=== PATIENT | female | born 1935 | race Caucasian/White ===

== ENCOUNTER 2017-04-16 09:51 | Outpatient (CLI) | payer MEDICARE ==
--- NOTE | 2017-04-16 10:41 | CT ---
CT BRAIN WITHOUT CONTRAST: History: Unsteady gait. FINDINGS: There are changes of cortical atrophy and chronic small vessel ischemic disease. The ventricular size is slightly more prominent than expected for the degree of atrophy. No evidence of acute infarct, he morrhage, midline shift, or abnormal extraaxial fluid collections are seen. The bony calvarium is int act. The visualized paranasal sinuses and mastoid air cells are well aerated. IMPRESSION: 1. No CT evidence of acute intracranial process. 2. 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 POS: [facility]
--- NOTE | 2017-04-16 15:49 | NM ---
NUCLEAR MEDICINE BRAIN IMAGING: Date: 04/16/17 HISTORY: Gait abnormality. TECHNIQUE: A DaTscan with axial tomographic images of the brain was obtained 3 hours following the intravenous a dministration of 4.5 mCi Iodine-123 Ioflupane. The patient was pretreated with 130 mg of potassium io dide orally 1 hour prior to the injection. FINDINGS: There is normal, symmetric uptake in the striata bilaterally demonstrating symmetric, crescent shaped focal regions of activity mirrored about the medial plane. IMPRESSION: Normal exam. POS: [facility]
== END 2017-04-16 09:52 | disposition home or self-care (01) ==
LOC: CT 09:51
PROVIDERS: ATTEND Psychiatry & Neurology Neurology
DX: R26.9 Unspecified abnormalities of gait and mobility (principal)
CPT/HCPCS: 70450; 78607; A9584

== ENCOUNTER 2017-11-17 13:11 | Inpatient (IN) | payer MEDICARE ==
[2017-11-17] MEDS ORDERED: Ondansetron HCl/PF 4 MG/2 ML Vial ONE (13:22)
[2017-11-17 13:45] LABS: #Basophils 0.1 thou/uL (0.0-0.2); #Eosinphils 0.4 thou/uL (0.0-0.7); #Lymphocytes 1.4 thou/uL (1.20-3.40); #Monocytes 0.8 thou/uL (0.11-0.59); %Basophils 0.4 % (0.0-1.0); %Eosinophils 3.3 % (0.0-10.0); %Lymphocytes 10.7 % (21.0-51.0); %Monocytes 6.5 % (0.0-10.0); %Neutrophils 79.1 % (42.0-75.0); Hemoglobin 13.3 g/dL (12.0-16.0); Mean Corpuscular HGB CONC 32.2 g/dL (32.0-36.0); Mean Corpuscular Hemoglobin 30.6 pg (27.0-31.0); Mean Corpuscular Volume 94.8 fL (78.0-98.0); Mean Platelet Volume 8.8 fL (7.4-10.4); Platelet Count 174 thou/uL (130-400); RBC Distribution Width 13.3 % (11.5-14.5); Red Blood Cell (RBC) Count 4.34 mill/uL (4.20-5.40); White Blood Cell (WBC) Count 12.6 thou/uL (4.8-10.8)
[2017-11-17 14:08] LABS: ALT (SGPT) 11 U/L (8-55); AST (SGOT) 16 U/L (5-34); Albumin 3.8 g/dL (3.4-4.8); Alkaline Phosphatase 115 U/L (40-150); Anion Gap 14 mmol/L (10-20); BUN (Urea Nitrogen) 29 mg/dL (9.8-20.1); CK (CPK) 57 U/L (29-168); Calc. Creatinine Clearance 0 mL/min (70-130); Calcium 8.8 mg/dL (7.8-10.44); Carbon Dioxide 19 mmol/L (23-31); Chloride 113 mmol/L (98-107); Estimated GFR-MDRD 76; Globulin 2.5 g/dL (2.4-3.5); Glucose 99 mg/dL (83-110); Potassium 3.5 mmol/L (3.5-5.1); Protein, Total 6.3 g/dL (6.0-8.3); Sodium 142 mmol/L (136-145)
--- NOTE | 2017-11-17 14:13 | RAD ---
PORTABLE CHEST: Date: 11/17/17 HISTORY: Status post fall this morning. Right-sided pain. FINDINGS: Heart size within normal limits. Aortic valve stent-type device is noted. Aorta is tortuous. There ar e atherosclerotic changes. The lungs are clear of infiltrates. I do not visualize any rib fractures. IMPRESSION: No acute findings. POS: [facility]
--- NOTE | 2017-11-17 14:17 | RAD ---
AP PELVIS: Date: HISTORY: Trauma. FINDINGS: There is an intertrochanteric right hip fracture with apex varus angulation of the fracture fragments . There is no evidence of a dislocation. No additional fracture is seen. Mild degenerative changes se en in lower lumbar spine. IMPRESSION: Angulated and mildly intertrochanteric right hip fracture. POS: [facility]
--- NOTE | 2017-11-17 14:18 | RAD ---
2 VIEWS RIGHT HIP: Date: 11/17/17 HISTORY: Right leg and hip pain after a fall this morning. FINDINGS: There is an intertrochanteric right hip fracture with varus angulation of fracture fragments. Fractur e may be minimally comminuted and is mildly . There is no evidence of a dislocation. There i s metallic density seen in the distal diaphysis of the femur which may be related to a knee prosthesi s, but this cannot be further evaluated on this exam. IMPRESSION: Angulated and mildly intertrochanteric right hip fracture. POS: [facility]
--- NOTE | 2017-11-17 15:31 | RAD ---
RIGHT KNEE 3 VIEWS: HISTORY: Knee pain status post fall. FINDINGS: Total knee prosthesis is in good position. On the lateral view, there is a suggestion that there is possibly a cortical fracture involving the anterior cortex of the distal femur just directly above th e prosthesis. No joint effusion is seen, but this finding still should be viewed with some suspicion given the history of fall. IMPRESSION: Questionable nondisplaced fracture of the distal femur involving the anterior cortex just above the j oint component of the prosthesis. These findings were discussed with Dr. Schumacher. CODE CR POS: [facility]
[2017-11-17 15:34] LABS: Bilirubin Negative (Negative); Blood, Urine Negative (Negative); Clarity CLEAR (Clear); Glucose, Urine (Dipstick) Negative (Negative); Leukocyte Negative (Negative); Nitrite Negative (Negative); Protein, Urine (Dipstick) Negative (Neg-Trace); Specific Gravity, Urine 1.017 (1.002-1.036); Urobilinogen 0.2 mg/dL (0.2-1.0)
[2017-11-17] MEDS ORDERED: Communication Order-Pharmacy FS PRN (16:05)
[2017-11-17] MEDS ORDERED: Ondansetron HCl/PF 4 MG/2 ML Vial IVP PRN (16:05)
[2017-11-17] MEDS ORDERED: Morphine 4 MG/ML Carpuject SLOW IVP SCH (16:05)
[2017-11-17 17:51] VITALS: BMI 28.5
--- NOTE | 2017-11-17 17:58 | CON ---
DATE OF CONSULTATION: 11/17/2017 REQUESTING PHYSICIAN: Luci Schumacher M.D. CONSULTING PHYSICIAN: Alo Hurley M.D. REASON FOR CONSULTATION: Right hip fracture. HISTORY OF PRESENT ILLNESS: This is an 82-year-old female who presented to the emergency department via EMS status post fall at home this morning. The patient states that she lives at home alone and uses a walker for ambulation purposes. She was making coffee this morning when she either lost her balance or slipped and fell dropping her coffee. She states she did not lose any consciousness at the time of her fall. She did not strike her head. She was found by a family member around lunchtime. She presented to the emergency department and was found to have a right intertrochanteric femur fracture. Our service has been consulted for this reason. At bedside, patient reports pain worse with movement and improved with rest. She denies any head trauma or other injuries at the time of her fall. She denies any history of right hip surgery, although she does state that she has had a right total hip replacement done in [place] several years ago. PAST MEDICAL HISTORY: Significant for hypertension, hyperlipidemia and dementia. PAST SURGICAL HISTORY: Significant for hysterectomy, right total knee replacement, tonsillectomy, and aortic valve replacement. SOCIAL HISTORY: Patient is a nonsmoker, nondrinker, no illicit drug use. She lives at home alone with family nearby. She uses a rolling walker for ambulation purposes. KNOWN ALLERGIES: Include KEFLEX, PENICILLINS, SULFA. FAMILY HISTORY: Reviewed and noncontributory. REVIEW OF SYSTEMS: Ten point review of systems conducted and otherwise negative except for as stated above. PHYSICAL EXAMINATION: VITAL SIGNS: Includes vital signs; blood pressure 171/70, pulse 70, respiratory rate 16, temperature 98.8. GENERAL: The patient is awake, alert, and oriented x3. She is in no acute distress. She is pleasant and cooperative with exam today. Her daughter is at bedside in the emergency department. HEENT: Head is normocephalic, atraumatic. NECK: Supple. Trachea is midline. Breathing is nonlabored. EXTREMITIES: The right lower extremity appears externally rotated. It is not shortened at this time. The patient is able to wiggle all toes and move her ankle. Sensation intact distally. Capillary refill 2 seconds. Remainder of extremity is unremarkable for other injuries. IMAGING DATA: Radiographic findings including 2 views of the right hip show an intertrochanteric femur fracture. This is displaced and somewhat impacted. Also reviewed were three views of the right knee showing evidence of a right total knee arthroplasty with implants intact. No fracture is visible in the knee. ASSESSMENT: Right hip intertrochanteric femur fracture. PLAN: At this point, we have discussed treatment options for this fracture. In order to restore anatomic alignment and preserve mobility, we would like to go forward with surgery on the right hip. Risks, benefits, and alternatives of surgery discussed at length with the patient and her daughter at bedside. She is amenable to this and would like to go forward with surgery. She states that she last ate around 10:00 this morning, she believes. Her daughter states it might have been closer to lunch time. Trauma will admit and we will plan for surgery tomorrow afternoon. The patient will be n.p.o. at midnight. All questions have been answered. GRACE
[2017-11-17] MEDS ORDERED: TETANUS AND DIPHTHERIA TOX/PF 0.5 ML DISP.SYRIN IM SCH (18:00)
[2017-11-17] MEDS: Acetaminophen 1,000 MG in Premix Bag 1 BAG IVPB SCH (19:21)
[2017-11-17] MEDS: Ketorolac Tromethamine 30 MG/ML VIAL IVP SCH (19:21)
[2017-11-17] MEDS ORDERED: Clindamycin/D5W 900 MG in Premix Bag 1 BAG IVPB SCH (19:30)
[2017-11-17] MEDS: Famotidine/PF 20 mg/2ml Vial SLOW IVP SCH (21:05)
[2017-11-18] MEDS: Acetaminophen 1,000 MG in Premix Bag 1 BAG IVPB SCH ×3 (00:26→11:40)
[2017-11-18] MEDS: Ketorolac Tromethamine 30 MG/ML VIAL IVP SCH ×4 (00:27→17:55)
--- NOTE | 2017-11-18 02:40 | HP-2 ---
DATE OF ADMISSION: 11/17/2017 DOCTOR: Luis A Ayers DO, PGY-1. REQUESTING PHYSICIAN: ATTENDING SURGEON: Peterson Tapia DO CONSULTATION: Orthopedics, Alo Hurley M.D. HISTORY OF PRESENT ILLNESS: This is an 82-year-old female who reports being at home alone. She was preparing breakfast and is unsure if she dropped her coffee or spilled food. She states she thinks s he may have been trying to place it on her walker. The patient fell on her right hip. The patient i mmediately felt pain. The patient denies LOC or head trauma. The patient was found around noon toda y by her daughter. Daughter states that she talked to her mother around 8 this morning. Patient is unsure when, patient was down to sometime between that time frame. The patient was brought to the ER . Pain was controlled there. The patient was diagnosed with angulated and mildly intertro chanteric right hip fracture. PHYSICAL EXAMINATION: VITAL SIGNS: Blood pressure 137/67, pulse 75, respirations 19, temperature 99.1, O2 sat 95% on room air. GENERAL: The patient is lying in bed in no acute distress, pleasant woman. HEENT: Head is normocephalic, atraumatic. Eyes, extraocular motion intact, PERRLA bilaterally. Ear s are atraumatic. Nose atraumatic. Oropharynx is clear. NECK: No tenderness, trachea is midline, there is no JVD. LUNGS: Clear to auscultation in all lung simmons with good respiratory effort. No respiratory distre ss. No trauma to chest wall. CARDIOVASCULAR: Regular rate and rhythm. The patient has grade 3/6 systolic murmur. ABDOMEN: Soft, flat, nontender with bowel sounds present. MUSCULOSKELETAL: The patient has tenderness over the right hip. No other deformities or changes not ed. EXTREMITIES: Neurovascularly intact x4 with 2+ pulses in all 4 extremities. LABORATORY DATA: WBC 12.6, hemoglobin 13.3, hematocrit 41.2, MCV 94.8, platelet count 174. Sodium 1 42, potassium 3.5, chloride 113, bicarb 19, BUN 29, creatinine 0.73, glucose 99. Urine shows only tr broderick ketones. RADIOGRAPHIC FINDINGS: 1. right knee x-ray questionable nondisplaced fracture of the distal femur involving the anter iorcortex just above the joint component of the prosthesis, AP pelvis shows angulated mildly separate d intertrochanteric right hip fracture. 2. Two view right hip shows angulated and mildly intertrochanteric right hip fracture. 3. Portable chest x-ray shows no acute findings. ASSESSMENT: 1. Status post ground level fall. 2. Right intertrochanteric femoral fracture. 3. Acute pain related to above, controlled. 4. History of hypertension. 5. History of aortic valve replacement. PLAN: The patient is admitted to surgical floor and Orthopedics has been consulted. Their plan is t o take to OR tomorrow afternoon and patient is aware of this and understands. We will control patien t's pain. After surgery, we will have the patient work with PT, OT. Dr. Tapia saw this patient. We discussed the treatment plan.
[2017-11-18 06:45] LABS: #Basophils 0.1 thou/uL (0.0-0.2); #Eosinphils 0.6 thou/uL (0.0-0.7); #Lymphocytes 1.6 thou/uL (1.20-3.40); #Monocytes 0.8 thou/uL (0.11-0.59); #Neutrophils 5.3 thou/uL (1.40-6.50); %Basophils 1.1 % (0.0-1.0); %Eosinophils 6.7 % (0.0-10.0); %Lymphocytes 19.4 % (21.0-51.0); %Monocytes 9.7 % (0.0-10.0); %Neutrophils 63.2 % (42.0-75.0); Hemoglobin 12.2 g/dL (12.0-16.0); Mean Corpuscular HGB CONC 32.1 g/dL (32.0-36.0); Mean Corpuscular Hemoglobin 30.4 pg (27.0-31.0); Mean Corpuscular Volume 94.8 fL (78.0-98.0); Mean Platelet Volume 8.9 fL (7.4-10.4); Platelet Count 158 thou/uL (130-400); RBC Distribution Width 13.3 % (11.5-14.5); Red Blood Cell (RBC) Count 3.99 mill/uL (4.20-5.40); White Blood Cell (WBC) Count 8.5 thou/uL (4.8-10.8)
[2017-11-18 06:57] LABS: ALT (SGPT) 11 U/L (8-55); AST (SGOT) 15 U/L (5-34); Albumin 3.6 g/dL (3.4-4.8); Alkaline Phosphatase 107 U/L (40-150); Anion Gap 10 mmol/L (10-20); BUN (Urea Nitrogen) 20 mg/dL (9.8-20.1); Bilirubin, Total 1.5 mg/dL (0.2-1.2); Calc. Creatinine Clearance 72 mL/min (70-130); Calcium 8.5 mg/dL (7.8-10.44); Carbon Dioxide 24 mmol/L (23-31); Chloride 109 mmol/L (98-107); Estimated GFR-MDRD 75; Globulin 2.3 g/dL (2.4-3.5); Glucose 95 mg/dL (83-110); Potassium 3.4 mmol/L (3.5-5.1); Protein, Total 5.9 g/dL (6.0-8.3); Sodium 140 mmol/L (136-145)
[2017-11-18 07:47] LABS: Magnesium 2.1 mg/dL (1.6-2.6); Phosphorus 3.2 mg/dL (2.3-4.7)
[2017-11-18] MEDS: Famotidine/PF 20 mg/2ml Vial SLOW IVP SCH ×2 (08:36→21:51)
[2017-11-18] MEDS ORDERED: Potassium Chloride 40 MEQ in Sodium Chloride 0.9% 250 ML 250 ML IVPB SCH (09:00)
[2017-11-18] MEDS ORDERED: Clindamycin/D5W 900 mg/50 ml Premix Bag ONE (12:02)
[2017-11-18] MEDS ORDERED: Fentanyl 100 MCG/2 ML VIAL ONE ×2 (12:18→13:55)
[2017-11-18] MEDS ORDERED: Phenylephrine HCL 10 MG/ML VIAL ONE (12:39)
--- NOTE | 2017-11-18 12:57 | PRG-2 ---
DATE OF SERVICE: 11/18/2017 SUBJECTIVE: This is an 82-year-old female who was diagnosed with a right intertrochanteric hip fract ure. The patient states that overnight she did well. Her pain was well controlled and currently she has no pain. She does have pain if she moves her leg too much. The patient denies any nausea, vomi ting, chest pain, trouble breathing, abdominal pain. PHYSICAL EXAMINATION: VITAL SIGNS: Temperature 98.0, pulse 59, respirations 16, O2 sat 90% on room air, blood pressure 139 /68. GENERAL: The patient is lying in bed in no acute distress. HEART: Regular rate and rhythm. A grade 3 systolic murmur. LUNGS: Clear to auscultation bilaterally. No respiratory distress. ABDOMEN: Soft, nontender with bowel sounds present. MUSCULOSKELETAL: The patient has tenderness over the right hip. No other deformities noted. EXTREMITIES: The patient is neurovascularly intact x4 with 2+ pulses in all extremities. LABORATORY DATA: White blood cell count 8.5, hemoglobin 12.2, hematocrit 37.9, MCV 94.8, platelets 1 58. Sodium 140, potassium 3.4, chloride 109, bicarb 24, BUN 20, creatinine 0.74, glucose 95. Phosph orus 3.2, magnesium 2.1, total bilirubin is 1.5 this morning. No radiographic findings or images to review. ASSESSMENT: 1. Status post ground level fall. 2. Right intertrochanteric femoral fracture. 3. Acute pain related to above, controlled. 4. History of hypertension. 5. History of aortic valve replacement. 6. Hypokalemia. PLAN: The patient will be going to the OR today for right hip repair. The patient's potassium is be ing replaced IV. After surgery, the patient will work with physical therapy and occupational therapy as well as have a rehab screen. After surgery, we will continue GI prophylaxis and start DVT prophy laxis. Also, continue pain control for the patient. Dr. Tapia saw this patient. We discussed the treatment plan.
[2017-11-18] MEDS ORDERED: HYDROcodone/Acetaminophen 5/325 mg Tablet PO PRN (13:53)
[2017-11-18] MEDS ORDERED: traMADol HCl 50 MG TAB PO PRN ×2 (13:53)
[2017-11-18] MEDS ORDERED: Ondansetron HCl/PF 4 MG/2 ML Vial ONE (14:01)
[2017-11-18] MEDS ORDERED: Lidocaine 1% PF 5 ML VIAL ONE (14:39)
[2017-11-18] MEDS ORDERED: PROPOFOL 200 MG/20 ML VIAL ONE (14:39)
[2017-11-18] MEDS ORDERED: PHENYLEPHRINE-NS 100 MCG/ML 10 ML SYRINGE ONE (14:39)
[2017-11-18] MEDS ORDERED: ePHEDrine/0.9% NaCl/PF SYRINGE 50 mg/10 ml ONE (14:39)
[2017-11-18] MEDS ORDERED: Glycopyrrolate 0.2 MG/ML 5 ML SYRINGE ONE (14:39)
--- NOTE | 2017-11-18 15:59 | RAD ---
RIGHT HIP 2 VIEWS: Date: 11/18/17 HISTORY: Intraoperative fluoroscopy. Right hip fracture. EXPOSURE: 59.1 seconds. 11.87 mGy*cm^2. FINDINGS: Three fluoroscopic views demonstrate an intertrochanteric fracture with internal fixation hardware. F racture lucency is noted. IMPRESSION: Fluoroscopy as above. POS: [facility]
--- NOTE | 2017-11-18 20:47 | OP ---
DATE OF SURGERY: 11/18/2017 PREOPERATIVE DIAGNOSIS: Right intertrochanteric femur fracture. POSTOPERATIVE DIAGNOSIS: Right intertrochanteric femur fracture. SURGICAL PROCEDURE: Right hip TFN nail. ANESTHESIA: General. SURGEON: Alo Hurley M.D. ACETYLENE BURNER: Miguelangel Cody PA-C. ESTIMATED BLOOD LOSS: 100 mL IMPLANTS: Synthes TFN system was used with a 12 x 170 mm nail and a 95 mm hip screw. COMPLICATIONS: None. DRAINS: None. SPECIMEN: None. OUTCOME: Near anatomic alignment. INDICATIONS: The patient is an 82-year-old lady status post ground level fall sustaining a right int ertrochanteric femur fracture. After discussion with patient and her family including risks and bene fits, we have decided to proceed with TFN stabilization. Informed consent has been obtained. Radha obrien all questions answered. DESCRIPTION OF PROCEDURE: The patient was brought to the operating room and a timeout performed foll owed by induction of general anesthesia. Next, the patient was positioned on the fracture table with the injured extremity held in longitudinal traction and slight internal rotation at the hip with the well leg held in extension at the hip to allow for scissoring of the hips, so we could obtain AP lat eral C-arm imaging of the right hip. A sterile prep and drape was performed of the right lateral thi gh. A small incision was then made proximal to greater trochanter. After skin was sharply incised, dissection was carried down bluntly such that the tip of the greater trochanter could be palpated. A threaded guidewire was then passed from the tip of the greater trochanter into the proximal canal of the femur. This was followed by passage of an opening reamer over this threaded guidewire. The rosemary dewire and reamer were then removed and a 12 x 170 mm nail was passed into the proximal femur without difficulty. Once placed at an appropriate depth, a second incision was made distal to the first and then the jig for the hip screw was inserted into this incision up against the lateral cortex of the femur and as a threaded guidewire was then passed up the femoral neck into the femoral head. Once ap propriately positioned, measurement off the pin revealed that a 95 mm hip screw would be of appropria te length and then reaming was performed over this threaded guidewire. The hip screw was then insert ed and then locked in place and then the locking mechanism backed off a half turn to allow for slidin g of the hip screw. Next, the jig was removed for the hip screw and a trocar was inserted for distal cross-locking screw through the same incision as the hip screw. Once the distal cross lock screw wa s placed, final AP, lateral C-arm images were obtained that showed acceptable alignment of the fractu re with just slight distraction and acceptable positioning of hardware. The two incisions were then irrigated with bulb syringe and closed in layers with 2-0 Vicryl deep, followed by malika for the sk in. A Xeroform gauze and tape dressing was applied to each of the 2 small incisions and then patient was transferred to recovery room in stable condition. There were no complications. She tolerated t he procedure well.
[2017-11-18] MEDS: Senokot 8.6 MG TAB PO SCH (21:51)
[2017-11-18] MEDS: HYDROcodone/Acetaminophen 5/325 mg Tablet PO PRN (21:51)
[2017-11-18] MEDS: Clindamycin/D5W 900 MG in Premix Bag 1 BAG IVPB SCH (21:52)
[2017-11-19] MEDS: Ketorolac Tromethamine 30 MG/ML VIAL IVP SCH ×2 (00:50→05:20)
[2017-11-19] MEDS: Clindamycin/D5W 900 MG in Premix Bag 1 BAG IVPB SCH (05:20)
[2017-11-19] MEDS ORDERED: Ondansetron ORAL SOLN. 4 MG/5 ML UDCUP PO PRN (06:29)
[2017-11-19] MEDS ORDERED: traMADol HCl 50 MG TAB PO PRN ×2 (06:29→06:36)
[2017-11-19] MEDS ORDERED: traMADol HCl 50 MG TAB PO SCH ×2 (06:30→06:45)
[2017-11-19] MEDS ORDERED: Sodium Chloride 0.9% 500 ML IV SCH (06:45)
[2017-11-19] MEDS: Acetaminophen 325 MG TAB PO SCH ×2 (06:50→11:39)
[2017-11-19 07:28] LABS: Anion Gap 11 mmol/L (10-20); BUN (Urea Nitrogen) 20 mg/dL (9.8-20.1); Calc. Creatinine Clearance 60 mL/min (70-130); Calcium 7.9 mg/dL (7.8-10.44); Carbon Dioxide 23 mmol/L (23-31); Chloride 108 mmol/L (98-107); Estimated GFR-MDRD 61; Glucose 116 mg/dL (83-110); Potassium 3.9 mmol/L (3.5-5.1); Sodium 138 mmol/L (136-145)
[2017-11-19 08:40] LABS: #Basophils 0.1 thou/uL (0.0-0.2); #Eosinphils 0.4 thou/uL (0.0-0.7); #Lymphocytes 1.6 thou/uL (1.20-3.40); #Monocytes 0.9 thou/uL (0.11-0.59); #Neutrophils 5.3 thou/uL (1.40-6.50); %Basophils 0.7 % (0.0-1.0); %Eosinophils 5.1 % (0.0-10.0); %Lymphocytes 19.7 % (21.0-51.0); %Monocytes 11.1 % (0.0-10.0); %Neutrophils 63.4 % (42.0-75.0); Hemoglobin 10.6 g/dL (12.0-16.0); Mean Corpuscular Hemoglobin 30.5 pg (27.0-31.0); Mean Corpuscular Volume 95.5 fL (78.0-98.0); Mean Platelet Volume 9.7 fL (7.4-10.4); Platelet Count 144 thou/uL (130-400); RBC Distribution Width 13.4 % (11.5-14.5); Red Blood Cell (RBC) Count 3.47 mill/uL (4.20-5.40); White Blood Cell (WBC) Count 8.3 thou/uL (4.8-10.8)
[2017-11-19] MEDS: Aspirin 81 mg Enteric Coated Tablet PO SCH ×2 (08:51→21:35)
[2017-11-19] MEDS: Famotidine 20 MG TAB PO SCH ×2 (08:51→21:35)
[2017-11-19] MEDS: Senokot 8.6 MG TAB PO SCH ×2 (08:51→21:35)
[2017-11-19] MEDS: Polyethylene Glycol 3350 17 GM Packet PO SCH (08:51)
[2017-11-19] MEDS: HYDROcodone/Acetaminophen 5/325 mg Tablet PO PRN (08:58)
[2017-11-19] MEDS ORDERED: HYDROcodone/Acetaminophen 5/325 mg Tablet PO PRN (10:01)
[2017-11-19] MEDS: HYDROcodone/Acetaminophen 5/325 mg Tablet PO SCH ×3 (10:16→21:35)
[2017-11-19] MEDS: Ibuprofen 600 MG TAB PO SCH ×3 (11:39→23:39)
--- NOTE | 2017-11-19 13:10 | PRG-2 ---
DATE OF SERVICE: 11/19/2017 SUBJECTIVE: This is an 82-year-old female who was diagnosed with a right intertrochanteric hip fract ure. The patient states that overnight she did well. The patient did state that when she was walkin g today her pain was 6/10 and that she is still having pain after physical therapy. The patient ivon es any nausea, vomiting, chest pain, trouble breathing, or abdominal pain. The patient had discussio n with insurance case manager regarding rehab versus SNF. The patient requested SNF, but was not given full inf ormation and our recommendations. PHYSICAL EXAMINATION: VITAL SIGNS: Temperature 97.9, pulse 78, respirations 18, pulse ox 90% on 1 liter, blood pressure 10 8/68. GENERAL: The patient is lying in bed, currently in no acute distress. HEART: Regular rate and rhythm with a grade 3 systolic murmur. LUNGS: Clear to auscultation bilaterally. No respiratory distress. ABDOMEN: Soft, nontender with bowel sounds present. EXTREMITIES: The patient has tenderness over the right hip. No other deformity. The patient is silvana rovascularly intact x4 with 2+ pulses in all extremities. LABORATORY DATA: Hemoglobin 10.6, white count 8.3, hematocrit 33.1, MCV 95.5, platelet count 144. S odium 138, potassium 3.9, chloride 108, bicarb 23, BUN 20, creatinine 0.88, glucose 116. No radiographic findings or imaging to review. ASSESSMENT: 1. Status post ground level fall. 2. Right intertrochanteric femoral fracture. 3. Acute pain related to above. 4. History of hypertension. 5. History of aortic valve replacement. 6. Hypokalemia, resolved. PLAN: The patient has been switched from tramadol to Dike 5 q.6h. with Dike 5 p.r.n. for breakthro ugh pain. We will see how the patient does with physical therapy and with walking today and change p ain management as needed. The patient is on deep venous thrombosis and gastrointestinal prophylaxis. We will have the patient was prepped for rehab as she was functioning at home prior to her injury. Discontinue Loo today. Dr. Tapia saw this patient and we discussed their treatment and plan.
[2017-11-19] MEDS: Acetaminophen 500 MG TAB PO SCH ×2 (17:53→23:39)
[2017-11-19] MEDS ORDERED: Sodium Chloride 0.9% 500 ML IVPB SCH (23:30)
[2017-11-20] MEDS: HYDROcodone/Acetaminophen 5/325 mg Tablet PO SCH ×4 (03:52→17:05)
[2017-11-20] MEDS: Ibuprofen 600 MG TAB PO SCH ×2 (06:29→12:58)
[2017-11-20] MEDS: Acetaminophen 500 MG TAB PO SCH ×2 (06:29→12:58)
[2017-11-20 07:55] LABS: #Basophils 0.1 thou/uL (0.0-0.2); #Eosinphils 0.6 thou/uL (0.0-0.7); #Lymphocytes 1.7 thou/uL (1.20-3.40); #Monocytes 0.9 thou/uL (0.11-0.59); %Basophils 0.6 % (0.0-1.0); %Eosinophils 7.3 % (0.0-10.0); %Lymphocytes 20.2 % (21.0-51.0); %Monocytes 10.7 % (0.0-10.0); %Neutrophils 61.2 % (42.0-75.0); Hemoglobin 9.6 g/dL (12.0-16.0); Mean Corpuscular HGB CONC 31.8 g/dL (32.0-36.0); Mean Corpuscular Hemoglobin 30.5 pg (27.0-31.0); Mean Corpuscular Volume 95.9 fL (78.0-98.0); Mean Platelet Volume 8.9 fL (7.4-10.4); Platelet Count 131 thou/uL (130-400); RBC Distribution Width 13.5 % (11.5-14.5); Red Blood Cell (RBC) Count 3.13 mill/uL (4.20-5.40); White Blood Cell (WBC) Count 8.2 thou/uL (4.8-10.8)
[2017-11-20 08:15] LABS: Anion Gap 10 mmol/L (10-20); BUN (Urea Nitrogen) 26 mg/dL (9.8-20.1); Calc. Creatinine Clearance 62 mL/min (70-130); Calcium 7.9 mg/dL (7.8-10.44); Carbon Dioxide 22 mmol/L (23-31); Chloride 109 mmol/L (98-107); Estimated GFR-MDRD 63; Glucose 102 mg/dL (83-110); Potassium 3.7 mmol/L (3.5-5.1); Sodium 137 mmol/L (136-145)
[2017-11-20] MEDS: Polyethylene Glycol 3350 17 GM Packet PO SCH (08:59)
[2017-11-20] MEDS: Senokot 8.6 MG TAB PO SCH (09:00)
[2017-11-20] MEDS ORDERED: Bisacodyl 10 MG SUPP PR SCH (09:00)
[2017-11-20] MEDS: Aspirin 81 mg Enteric Coated Tablet PO SCH (09:00)
[2017-11-20] MEDS: Famotidine 20 MG TAB PO SCH (09:00)
[2017-11-20 11:47] VITALS: TEMP 98.1
--- NOTE | 2017-11-20 13:22 | PRG-2 ---
DATE OF SERVICE: 11/20/2017 SUBJECTIVE: This is an 82-year-old female who was diagnosed with a right intertrochanteric hip fract ure. The patient states that she did well overnight; however, she was complaining of increased pain this morning. The patient has been accepted to rehab, but reports no bowel movement after her surger y. PHYSICAL EXAMINATION: VITAL SIGNS: Temperature 98.0, pulse 72, respirations 16, pulse oximetry 96% on 2 liters nasal cannu la, BP 108/67. GENERAL: The patient is lying in bed, in no acute distress. HEART: Regular rate and rhythm with grade 3 systolic murmur. LUNGS: Clear to auscultation bilaterally. No respiratory distress. ABDOMEN: Soft, nontender with bowel sounds present. EXTREMITIES: The patient continues to have tenderness over her right hip. No other deformity. Extr emities are neurovascularly intact x4 with 2+ pulses in all 4 extremities. LABORATORY DATA: CBC includes WBC 8.2, hemoglobin 9.6, hematocrit 30.0, MCV 95.9, platelet count 131 ,000. BMP, sodium 137, potassium 3.7, chloride 109, bicarbonate 22, BUN 26, creatinine 0.86, glucose 102. RADIOGRAPHIC IMAGING: None to review today. ASSESSMENT: 1. Status post ground level fall. 2. Right intertrochanteric femoral fracture postoperative day 2 open reduction internal fixation. 3. Acute pain related to above. 4. History of hypertension. 5. History of aortic valve replacement. 6. Hypokalemia, resolved. PLAN: The patient is currently receiving Winfall 5 scheduled and Winfall 5 p.r.n. for breakthrough pain q.6 hours. The patient has been working with physical therapy, discharge depending on their ac ceptance of patient without bowel movement or patient's bowel movement later today. The patient has been given [place] Dulcolax to encourage bowel movement as she is on narcotic medication currently. The p atient is also on GI and DVT prophylaxis. Dr. Tapia saw this patient. We discussed their treatment and plan.
[2017-11-20 15:38] VITALS: BP 144/75
--- NOTE | 2017-11-21 01:38 | DIS-2 ---
DATE OF ADMISSION: 11/17/2017 DATE OF DISCHARGE: 11/20/2017 ADMITTING TEAM: Trauma, Dr. Tapia and Dr. Ayers. DISCHARGING TEAM: Trauma, Dr. Tapia and Dr. Ayers. CONSULTATIONS: Orthopedics, Dr. Hurley. PROCEDURES: Pelvic x-ray showing angulated and mildly intertrochanteric right hip fracture , chest view portable, 1 view showing no acute findings, knee x-ray, questionably nondisplaced fractu re of the distal femur involving the anterior cortex just above the joint component of prosthesis, ri t hip 2-view angulated and mildly intertrochanteric right hip fracture. Intraoperative f luoroscopy, two view of the right hip shows intertrochanteric fracture with internal fixation hardwar e, Synthes TFN system was used for ORIF of right femoral fracture. PRIMARY DIAGNOSIS: Right intertrochanteric hip fracture. SECONDARY DIAGNOSES: History of hypertension, history of aortic valve replacement. DISCHARGE MEDICATIONS: 1. Tylenol 500 mg q.6 hours. 2. Aspirin 81 mg b.i.d. 3. Archer 5 one tablet q.6 hours, one tablet q.6 hours p.r.n. breakthrough pain. 4. Ibuprofen 600 mg q.8 hours. 5. MiraLax 17 grams every day. 6. Senokot 2 tabs p.o. b.i.d. 7. Amlodipine/benazepril 5 and 10 mg capsule. 8. Aspirin 325 daily. 9. Atorvastatin 20 mg daily. 10. Biotin 1000 mcg daily. 11. Vitamin D3 at 2000 units daily. 12. Benazepril 5 mg at bedtime. 13. Toviaz 4 mg every day. 14. Fexofenadine 180 mg daily. 15. Flonase 1-2 sprays daily. 16. Mucinex p.o. b.i.d. p.r.n. allergies. 17. Multivitamin p.o. daily. DISCONTINUED MEDICATIONS: None. BRIEF HISTORY OF PRESENT ILLNESS/HOSPITAL COURSE: This is an 82-year-old female, who presented to [facility] ER after falling at home. She suffered a right intertrochanteric femoral fracture. Once she was i n the hospital, her pain was controlled, and she was taken back for ORIF of that right femoral fractu re. The patient tolerated procedure well. While patient was in the hospital, patient required Archer for pain control and for pain control during physical therapy. DISPOSITION: Stable. DISCHARGE INSTRUCTIONS: 1. Location: Rehab. 2. Activity: As tolerated. 3. Diet: Full. 4. Followup with Dr. Hurley in 1-2 weeks and primary care physician in 1-[address] Tapia saw this patient. We discussed the treatment and plan.
--- NOTE | 2017-11-22 12:23 | EKG ---
Test Reason : HIP PAIN Blood Pressure : / mmHG Vent. Rate : 064 BPM Atrial Rate : 064 BPM P-R Int : 180 ms QRS Dur : 086 ms QT Int : 444 ms P-R-T Axes : 049 025 055 degrees QTc Int : 458 ms Normal sinus rhythm Normal ECG Confirmed by GRAYSON VICKERS ([id number]), assignment desk editor ROSSY FRANCISCO ([id number]) on 11/22/2017 12:23:11 PM Referred By: Confirmed By:GRAYSON VICKERS
== END 2017-11-20 19:55 | DRG 482 ==
LOC: ERS 13:11 → SURG A 14:54
PROVIDERS: ADMIT Surgery; ATTEND Surgery
PROC: 0QS604Z Reposition Right Upper Femur with Internal Fixation Device, Open Approach (ICD-10-PCS; principal; 2017-11-18)
DX: S72.141A Displaced intertrochanteric fracture of right femur, initial encounter for closed fracture (principal); E87.6 Hypokalemia; I10 Essential (primary) hypertension; E78.5 Hyperlipidemia, unspecified; F03.90 Unspecified dementia, unspecified severity, without behavioral disturbance, psychotic disturbance, mood disturbance, and anxiety; Z96.651 Presence of right artificial knee joint; Z95.2 Presence of prosthetic heart valve; Z88.0 Allergy status to penicillin; Z88.8 Allergy status to other drugs, medicaments and biological substances; Z88.2 Allergy status to sulfonamides
CPT/HCPCS: 36415; 51702; 71045; 72170; 76001; 80048; 80053; 81003; 82550; 83735; 84100; 85025; 93005; 94640; 96374; 96375; C1713; G0390; G8978-GP-CL; G8979-GP-CJ; G8987-GO-CK; G8988-GO-CI; J0131; J1885; J2001; J2270; J2370; J2405; J2704; J3010; J3480; J3490; J7050; J7620; S0028

== ENCOUNTER 2017-12-08 16:45 | Emergency (ER) | payer MEDICARE ==
[2017-12-08 17:36] LABS: #Basophils 0.1 thou/uL (0.0-0.2); #Eosinphils 0.6 thou/uL (0.0-0.7); #Lymphocytes 1.9 thou/uL (1.20-3.40); #Monocytes 0.6 thou/uL (0.11-0.59); #Neutrophils 4.5 thou/uL (1.40-6.50); %Basophils 1.3 % (0.0-1.0); %Eosinophils 7.5 % (0.0-10.0); %Lymphocytes 24.7 % (21.0-51.0); %Monocytes 8.1 % (0.0-10.0); %Neutrophils 58.3 % (42.0-75.0); Hemoglobin 11.6 g/dL (12.0-16.0); Mean Corpuscular HGB CONC 32.5 g/dL (32.0-36.0); Mean Corpuscular Hemoglobin 31.8 pg (27.0-31.0); Mean Corpuscular Volume 97.7 fL (78.0-98.0); Mean Platelet Volume 8.8 fL (7.4-10.4); Platelet Count 275 thou/uL (130-400); RBC Distribution Width 14.3 % (11.5-14.5); Red Blood Cell (RBC) Count 3.66 mill/uL (4.20-5.40); White Blood Cell (WBC) Count 7.7 thou/uL (4.8-10.8)
[2017-12-08 17:56] LABS: ALT (SGPT) 16 U/L (8-55); AST (SGOT) 17 U/L (5-34); Albumin 3.6 g/dL (3.4-4.8); Alkaline Phosphatase 141 U/L (40-150); Anion Gap 11 mmol/L (10-20); BUN (Urea Nitrogen) 30 mg/dL (9.8-20.1); Bilirubin, Total 0.8 mg/dL (0.2-1.2); Calc. Creatinine Clearance 0 mL/min (70-130); Calcium 8.9 mg/dL (7.8-10.44); Carbon Dioxide 25 mmol/L (23-31); Chloride 109 mmol/L (98-107); Estimated GFR-MDRD 74; Globulin 2.3 g/dL (2.4-3.5); Glucose 109 mg/dL (83-110); Potassium 3.4 mmol/L (3.5-5.1); Protein, Total 5.9 g/dL (6.0-8.3); Sodium 142 mmol/L (136-145)
--- NOTE | 2017-12-08 19:11 | ULT ---
VENOUS DOPPLER ULTRASOUND OF THE RIGHT LOWER EXTREMITY: HISTORY: Right leg edema and erythema. TECHNIQUE: Hay-scale ultrasound with color-flow and spectral Doppler imaging of the deep venous system of the r ight lower extremity is performed. FINDINGS: There is good flow, compression, and augmentation noted in the right common femoral, femoral, deep fe moral, popliteal, posterior tibial vein, and greater saphenous veins. IMPRESSION: No evidence of deep venous thrombosis in the right lower extremity. POS: [facility]
== END 2017-12-08 18:42 | disposition home or self-care (01) ==
LOC: ERS 16:45
DX: L03.115 Cellulitis of right lower limb (principal); I10 Essential (primary) hypertension
CPT/HCPCS: 36415; 80053; 85025

== ENCOUNTER 2017-12-13 08:15 | Inpatient (IN) | payer MEDICARE ==
[2017-12-13 08:49] LABS: #Eosinphils 0.1 thou/uL (0.0-0.7); #Lymphocytes 1.6 thou/uL (1.20-3.40); #Monocytes 1.2 thou/uL (0.11-0.59); #Neutrophils 11.3 thou/uL (1.40-6.50); %Basophils 0.1 % (0.0-1.0); %Lymphocytes 11.3 % (21.0-51.0); %Monocytes 8.4 % (0.0-10.0); %Neutrophils 79.2 % (42.0-75.0); Hemoglobin 12.9 g/dL (12.0-16.0); Mean Corpuscular HGB CONC 31.4 g/dL (32.0-36.0); Mean Corpuscular Hemoglobin 30.6 pg (27.0-31.0); Mean Corpuscular Volume 97.3 fL (78.0-98.0); Mean Platelet Volume 8.8 fL (7.4-10.4); Platelet Count 230 thou/uL (130-400); RBC Distribution Width 14.5 % (11.5-14.5); Red Blood Cell (RBC) Count 4.22 mill/uL (4.20-5.40); White Blood Cell (WBC) Count 14.2 thou/uL (4.8-10.8)
[2017-12-13 09:05] LABS: Bilirubin Negative (Negative); Blood, Urine Negative (Negative); Clarity CLEAR (Clear); Glucose, Urine (Dipstick) Negative (Negative); Leukocyte Negative (Negative); Nitrite Negative (Negative); Protein, Urine (Dipstick) Negative (Neg-Trace); Specific Gravity, Urine 1.022 (1.002-1.036); Urobilinogen 0.2 mg/dL (0.2-1.0)
[2017-12-13 09:09] LABS: ALT (SGPT) 17 U/L (8-55); AST (SGOT) 24 U/L (5-34); Albumin 3.7 g/dL (3.4-4.8); Alkaline Phosphatase 155 U/L (40-150); Anion Gap 13 mmol/L (10-20); BUN (Urea Nitrogen) 24 mg/dL (9.8-20.1); Bilirubin, Total 0.9 mg/dL (0.2-1.2); Calc. Creatinine Clearance 0 mL/min (70-130); Calcium 8.9 mg/dL (7.8-10.44); Carbon Dioxide 21 mmol/L (23-31); Chloride 109 mmol/L (98-107); Estimated GFR-MDRD 77; Globulin 2.8 g/dL (2.4-3.5); Glucose 117 mg/dL (83-110); Potassium 4.1 mmol/L (3.5-5.1); Protein, Total 6.5 g/dL (6.0-8.3); Sodium 139 mmol/L (136-145)
[2017-12-13] MEDS ORDERED: cefTRIAXone\\ROCEPHIN 2 GM VIAL ONE (09:10)
[2017-12-13] MEDS ORDERED: Acetaminophen 325 MG TAB ONE (09:10)
[2017-12-13 09:13] LABS: CKMB 0.5 ng/mL (0-6.6); Troponin I Less than 0.010 ng/mL (< 0.028)
--- NOTE | 2017-12-13 09:39 | CT ---
CT OF HEAD NONCONTRAST: Date: 12/13/17 COMPARISON: 04/16/17. INDICATION: Altered mental status. FINDINGS: There is parenchymal volume loss with compensatory dilatation of the ventricular system, stable appea ring. There is mild chronic ischemic disease. No acute intracranial hemorrhage, mass effect, or midli ne shift. IMPRESSION: Stable head CT without acute intracranial abnormality visualized. POS: [facility]
[2017-12-13] MEDS ORDERED: SODIUM CHLORIDE IVPB SCH (10:00)
[2017-12-13] MEDS ORDERED: ADMIXTURE FEE IVPB SCH (10:00)
[2017-12-13] MEDS ORDERED: VANCOMYCIN HCL IVPB SCH (10:00)
--- NOTE | 2017-12-13 10:43 | RAD ---
FRONTAL VIEW CHEST: Date: 12/13/17 INDICATION: Fever, altered mental status. COMPARISON: 11/17/17. FINDINGS: There is interstitial prominence of the lungs bilaterally. Cardiomediastinal silhouette is prominent. There is vascular congestion. IMPRESSION: Findings indicating fluid overload, which may be related to CHF. Correlate clinically. Imaging follow -up may prove useful for continued assessment. POS: [facility]
--- NOTE | 2017-12-13 10:47 | ULT ---
ULTRASOUND WITH DOPPLER DUPLEX VENOUS LOWER EXTREMITY RIGHT: CPT: 20165 ICD-10-PCS: B54D INDICATION: Pain, edema. History of recent surgery. TECHNIQUE: Color flow Doppler, spectral waveform analysis of pulsed Doppler, and herrera-scale imaging with duy edgar and augmentation, were used to evaluate the right common femoral, femoral, popliteal, posterior tibial, and superficial femoral, veins; and the proximal portions of the profunda femoral and greater saphenous, veins. FINDINGS: Within the imaged aspects of the deep vein system of the right lower extremity, there is no deep veno us thrombosis. Popliteal vein is not reliably visualized. IMPRESSION: Within the limitations, there is no evidence of deep venous thrombosis within the visualized right lo wer extremity. POS: AMBROCIO
--- NOTE | 2017-12-13 10:49 | RAD ---
RIGHT HIP SERIES: Date: 12/13/17 COMPARISON: 11/17/17. HISTORY: Pain FINDINGS: There is hardware present, transfixing patient's previously diagnosed intertrochanteric fracture. Fra cture lucency does persist with associated sclerosis. No acute hardware complication identified. Hip joint alignment is maintained. There is partially imaged hardware within the distal left femur. IMPRESSION: Postoperative right hip. POS: C
[2017-12-13 12:27] VITALS: BMI 28.7
[2017-12-13] MEDS ORDERED: Acetaminophen 325 MG TAB PO PRN ×2 (12:38→13:39)
[2017-12-13] MEDS ORDERED: Prevnar 13-Val Conj/PF 0.5 ML SYRINGE IM ONE (12:45)
[2017-12-13] MEDS ORDERED: Senokot S 8.6-50 MG TAB PO PRN (13:39)
[2017-12-13] MEDS ORDERED: ISOVUE-370 76%-LOCM 1 ML ONE (15:13)
[2017-12-13] MEDS: Sodium Chloride 0.9% 1,000 ML IV SCH (15:43)
--- NOTE | 2017-12-13 16:25 | CON ---
DATE OF CONSULTATION: 12/13/2017 HISTORY OF PRESENT ILLNESS: Ms. Arnold is an 82-year-old white female, who had sustained an intertroch anteric fracture of the right hip. She had subsequent surgery on the right hip, approximately 3-3.[address] Hurley. She is doing well with her right hip. She was back home, receiving home physical therapy. Daughter lives very close to her and has been helping out with her care and contin ued therapy. The daughter noticed that her mother started to have altered mental status. Yesterday, she was unable to do simple tasks such as lift a cup and take a drink. She had significant decrease d ability as far as ambulation. The daughter called EMS to evaluate and they brought her to the [facility] room. She is admitted for sepsis. Because of the recent hip surgery, I was asked to consult t o see if there was any indication that there might be an infection in the right hip. The patient's d aughter and the patient state that there has not been any open wounds or drainage, no erythema in the right hip, and in general, the pain in the right hip has decreased. PHYSICAL EXAMINATION: The patient's vital signs, she has had 2 temperatures here in the hospital, sh owed 98.5 and 98.4. Her last vital signs showed a pulse of 71, respiratory rate 16, blood pressure 1 19/57, O2 saturation is 100. She had an ultrasound performed and negative for any DVT. She did have x-rays of the right hip, which showed the intertrochanteric fracture in excellent alignment and the trochanteric fixation nail was in good position. No postoperative complications were noted. On phys ical exam of the right hip, the two incisions, one in the lateral aspect of the hip and one more in t he thigh, are showing excellent signs of healing. There is no drainage. There is no erythema of the skin around the hip. I am able to move the right hip without pain. There is no crepitance or poppi ng. ASSESSMENT: There is no indication there is any type of infection in or around the right hip. PLAN: The medical doctors will continue to work the patient up for her mental health status and poss ible sepsis, but I did not feel that any of her problem is coming from the right hip.
--- NOTE | 2017-12-13 17:18 | HP ---
CHIEF COMPLAINT: Acute confusion. HISTORY OF PRESENT ILLNESS: Patient is a very pleasant 82-year-old female with past medical history of hypertension, normal pressure hydrocephalus and mild dementia who was brought in by the daughter f or worsening mentation. The patient was recently discharged from the hospital about 3 weeks ago afte r having a fall and patient had a right hip fracture and underwent a right hip replacement. Followin g that, the patient went to rehab and then went home on last Friday. The patient's daughter stated that on Friday or Friday of earlier this week, she noticed some redness on the right ankle area, so she took the patient to the ER where she was given clindamycin orally. Patient's daughter stated th at her redness continued to improve; however, as the week went by, she noticed that on Friday, the pa tient started becoming more weaker generalized weakness. Patient got a flu shot and pneumonia shot o n prior to the weakness. Patient's daughter stated normally she is able to get up with assi stance using a walker. However, on Friday, she was unable to do so and on Friday morning, she note d that her mother felt warm and her mother was just additive and also just generalized weakness was n oted. She then brought her mother to the ER for further evaluation. Patient denies any cough, any f job at home, any diarrhea. She did complain of some nausea but no vomiting. She has been having a good appetite. No burning while urinating. No pain in the neck area. No chest pressure or shortne ss of breath. No lower back pain. She just states that she has some right hip pain from her recent hip surgery. PAST MEDICAL HISTORY: As of the following, she has a history of hypertension. She has a history of bioprosthetic aortic valve replacement. She has a history of dementia and normal pressure hydrocepha ector and also hyperlipidemia. PAST SURGICAL HISTORY: She has had only hysterectomy, questionable appendectomy. SOCIAL HISTORY: She denies any alcohol use, drug use, smoking history. She is a FULL CODE per luciano mustafa and patient's daughter. REVIEW OF SYSTEMS: All negative except for the ones mentioned above in the HPI. FAMILY HISTORY: Mother and father of heart disease. ALLERGIES: She is allergic to KEFLEX and PENICILLIN. She states that she gets a rash or hives. MEDICATIONS: Are as of the following; she takes aspirin daily, vitamin D3 daily. She takes Toviaz t wo tabs daily, Flonase as needed, multivitamin 1 p.o. daily, amlodipine 5 mg with hydrochlorothiazide 10 mg 1 p.o. daily, clindamycin 300 mg daily which was new, tramadol 5 mg q.6 hours p.r.n., iron pil l. She also takes donepezil 5 mg daily, potassium chloride 10 mEq daily, atorvastatin 20 mg daily, a nd Citracal 2 tabs daily. PHYSICAL EXAMINATION: VITAL SIGNS: As of the following: She did have a fever in the ER; however, on the floor, she was 98 .5, 76, 18, 97% room air, 125/69. GENERAL: She was awake, alert, oriented x2. She did not know what year this was. She does not appe ar in any distress. HEENT: Normocephalic, atraumatic. LUNGS: Clear upon auscultation. No rhonchi, wheezes noted. CARDIOVASCULAR: S1, S2 present. She had a mild systolic murmur heard in her right upper quadrant, r ight chest wall area, left sternal area. ABDOMEN: Bowel sounds are present x2. Obese. She did have some pain upon palpation all around. No significant epigastric pain; however, she did have some pain in her right upper quadrant and also ri ght lower quadrant and left lower quadrant. EXTREMITIES: She had no edema. Pedal pulses are present. She does have some mild erythema that was noted on her right lower leg; however, very faint. Her right hip incision appear dry and intact. NEUROLOGIC: She has mild 4/5 strength in her right leg; however, 5/5 in her left. Sensation was int act bilaterally. She has 5/5 upper extremity strength. Cerebellum test was negative and negative pr onator test. LABORATORY DATA: As following; sodium of 139, potassium of 4.1, BUN of 24, creatinine 0.72. Alkalin e phosphatase was 155. Troponin x1 was negative. Her CRP was 9.03. TSH was 1.02. WBC of 14.2, MCV of 97.3, hemoglobin of 12.9 and platelets of 238, ESR of 7. No bandemia was noted. Her urine was c ompletely normal. Chest x-ray just indicates some cephalization. No significant pneumonia or infilt rate noted. She had a vascular ultrasound of her right lower extremity to rule out DVT which was neg ative. She also had a CT head and a hip x-ray, which did not indicate any acute abnormalities. ASSESSMENT AND PLAN: The patient is a very pleasant 82-year-old female who presents to the hospital for generalized weakness. 1. Sepsis, unknown etiology. Patient's UA is negative. Chest x-ray is negative. Blood cultures baez ve been drawn. Her right hip incision looks stable. X-ray did not indicate any acute abnormalities. She does have some abdominal pain. We will get an abdominal CAT scan to rule out any abnormalities , possible etiologies in her abdomen. She has no nuchal rigidity and no neck pain. We will continue broad spectrum antibiotics for now. Her ESR was normal, but her CRP was elevated at 9 and her TSH w as normal. 2. Acute metabolic encephalopathy. This could be due to her underlying sepsis; however, unknown connie rce. We will continue broad spectrum antibiotics and continue to monitor. 3. Mild dehydration. The patient does appear clinically very dehydrated. Also, her BUN was mildly elevated at 24. We will start the patient on some gentle hydration and continue to monitor. 4. Hypertension. We will continue her home medications. 5. History of dementia. We will continue her home medications. Per patient and patient's daughter, she is a full code. We will also order PT and OT for this patient. 6. DVT prophylaxis. We will put the patient on Lovenox or sequential compression devices.
--- NOTE | 2017-12-13 19:27 | CT ---
CT ABDOMEN AND PELVIS PERFORMED WITH INTRAVENOUS CONTRAST ENHANCEMENT: HISTORY: Fever and abdominal pain. History of a hysterectomy. FINDINGS: ABDOMEN: Small bilateral effusions are noted with bibasilar atelectasis. There is a small hiatal he rnia noted. The liver, spleen, pancreas, and gallbladder regions appear unremarkable. The right and left adrenal glands and the right and left kidneys are normal in size and appearance. There is no significant periaortic or mesenteric adenopathy. A moderate amount of stool is seen with in the colon. 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 No obstructio n associated with this. There is also a tiny, fat-containing paraumbilical hernia noted. PELVIS: A moderate amount of stool is seen within the colon. No inflammatory change. The appendix is not definitely identified, but I do not see any signs for appendicitis. There are arthritic changes in the spine. IMPRESSION: 1. No acute abnormalities of the abdomen or pelvis. 2. Left-sided nonobstructing Spigelian type hernia. 3. Findings suggesting constipation. POS: AMBROCIO
[2017-12-13] MEDS: Famotidine 20 MG TAB PO SCH (19:46)
[2017-12-13] MEDS: Donepezil HCl 5 MG TAB PO SCH (19:46)
[2017-12-13] MEDS ORDERED: Vancomycin HCl 1 GM in Premix Bag 1 BAG IVPB SCH (21:00)
[2017-12-13] MEDS ORDERED: Senokot S 8.6-50 MG TAB PO SCH (21:30)
[2017-12-13] MEDS ORDERED: Polyethylene Glycol 3350 17 GM Packet PO SCH (21:30)
[2017-12-14 04:50] LABS: #Eosinphils 0.3 thou/uL (0.0-0.7); #Lymphocytes 1.1 thou/uL (1.20-3.40); #Monocytes 0.5 thou/uL (0.11-0.59); %Basophils 0.4 % (0.0-1.0); %Eosinophils 3.9 % (0.0-10.0); %Lymphocytes 13.7 % (21.0-51.0); %Monocytes 6.3 % (0.0-10.0); %Neutrophils 75.7 % (42.0-75.0); Hemoglobin 11.6 g/dL (12.0-16.0); Mean Corpuscular HGB CONC 32.1 g/dL (32.0-36.0); Mean Corpuscular Hemoglobin 31.1 pg (27.0-31.0); Mean Platelet Volume 9.2 fL (7.4-10.4); Platelet Count 190 thou/uL (130-400); RBC Distribution Width 14.1 % (11.5-14.5); Red Blood Cell (RBC) Count 3.74 mill/uL (4.20-5.40); White Blood Cell (WBC) Count 7.9 thou/uL (4.8-10.8)
[2017-12-14 05:16] LABS: Anion Gap 12 mmol/L (10-20); BUN (Urea Nitrogen) 16 mg/dL (9.8-20.1); Calc. Creatinine Clearance 89 mL/min (70-130); Calcium 8.6 mg/dL (7.8-10.44); Carbon Dioxide 22 mmol/L (23-31); Chloride 110 mmol/L (98-107); Estimated GFR-MDRD Greater than 90; Glucose 85 mg/dL (83-110); Potassium 3.6 mmol/L (3.5-5.1); Sodium 140 mmol/L (136-145)
[2017-12-14] MEDS: Enoxaparin Sodium 30 MG/0.3 ML SYRINGE SC SCH (07:52)
[2017-12-14] MEDS: cefTRIAXone\\ROCEPHIN 2 GM in Sodium Chloride 0.9% 100 ML IVPB SCH (07:52)
[2017-12-14] MEDS: Polyethylene Glycol 3350 17 GM Packet PO SCH (07:53)
[2017-12-14] MEDS: Calcium Carbonate + Vit D 1 TAB PO SCH (07:53)
[2017-12-14] MEDS: Senokot S 8.6-50 MG TAB PO SCH ×2 (07:53→21:19)
[2017-12-14] MEDS: Multivit, Therapeutic 1 TAB PO SCH (07:54)
[2017-12-14] MEDS: Famotidine 20 MG TAB PO SCH ×2 (07:54→21:19)
[2017-12-14] MEDS: Ferrous Sulfate 325 MG TAB PO SCH (07:54)
[2017-12-14] MEDS: Atorvastatin Calcium 20 MG TAB PO SCH (07:54)
[2017-12-14] MEDS ORDERED: Bisacodyl 5 MG TAB PO SCH (08:15)
[2017-12-14] MEDS ORDERED: Aspirin 325 MG TAB PO SCH (09:00)
[2017-12-14] MEDS ORDERED: [UNRECOGNIZED DRUG - MIXTURE] PO SCH (09:00)
[2017-12-14] MEDS ORDERED: Vancomycin HCl 1.25 GM in Sodium Chloride 0.9% 250 ML 250 ML IVPB SCH (10:00)
[2017-12-14] MEDS: Sodium Chloride 0.9% 1,000 ML IV SCH (11:33)
--- NOTE | 2017-12-14 14:15 | PDOC.PN ---
- Subjective Encounter Start Date: 12/14/17 Encounter Start Time: 10:30 Subjective: pt up in bed no complains - Objective Resuscitation Status: Resuscitation Status FULL:Full Resuscitation Vital Signs & Weight: Vital Signs (12 hours) Temp Pulse Resp BP BP Pulse Ox 12/14/17 11:25 171/69 H 12/14/17 08:00 98 12/14/17 07:52 98.6 F 73 18 145/75 H 92 L 12/14/17 04:30 98.7 F 67 16 128/76 93 L Weight Weight 178 lb I&O: 12/13/17 12/14/17 12/15/17 06:59 06:59 06:59 Intake Total 1560 480 Balance 1560 480 Result Diagrams: 12/14/17 03:41 12/14/17 03:41 Phys Exam - Physical Examination HEENT: PERRLA, moist MMs, sclera anicteric, TM's clear, oral pharynx no lesions , 2+ tonsils Neck: no nodes, no JVD, supple, full ROM Respiratory: no wheezing, no rales, no rhonchi, wheezing present, clear to auscultation bilateral Cardiovascular: RRR, no significant murmur, no rub, gallop, irregular Gastrointestinal: soft, non-tender, no distention, positive bowel sounds Dx/Plan (1) Sepsis Code(s): A41.9 - SEPSIS, UNSPECIFIED ORGANISM Status: Acute (2) Generalized weakness Code(s): R53.1 - WEAKNESS Status: Acute (3) Acute metabolic encephalopathy Code(s): G93.41 - METABOLIC ENCEPHALOPATHY Status: Acute (4) Fever Code(s): R50.9 - FEVER, UNSPECIFIED Status: Acute - Plan pt's sed rate normal, crp is elevated -: so far no fever on abx, cx negative so far -: ct abd/pel no acute problems. will check echo for weakness * . Review of Systems - Review of Systems Respiratory: negative: Cough, Dry, Shortness of Breath, Hemoptysis, SOB with Excertion, Pleuritic Pain, Sputum, Wheezing Cardiovascular: negative: chest pain, palpitations, orthopnea, paroxysmal nocturnal dyspnea, edema, light headedness, other Gastrointestinal: negative: Nausea, Vomiting, Abdominal Pain, Diarrhea, Constipation, Melena, Hematochezia, Other Genitourinary: negative: Dysuria, Frequency, Incontinence, Hematuria, Retention , Other Musculoskeletal: negative: Neck Pain, Shoulder Pain, Arm Pain, Back Pain, Hand Pain, Leg Pain, Foot Pain, Other - Medications/Allergies Allergies/Adverse Reactions: Allergies Allergy/AdvReac Type Severity Reaction Status Date / Time cephalexin Allergy Verified 11/17/17 16:00 Penicillins Allergy Verified 12/13/17 12:33 Sulfa (Sulfonamide Allergy Verified 12/13/17 12:33 Antibiotics) Medications: Current Medications Acetaminophen (Tylenol) 650 mg PO Q4H PRN PRN Reason: Headache/Fever/Mild Pain (1-3) Atorvastatin Calcium (Lipitor) 20 mg PO DAILY [facility] Last Admin: 12/14/17 07:54 Dose: 20 mg Calcium/Vitamin D (Caltrate 600 + Vit D) 2 tab PO DAILY [facility] Last Admin: 12/14/17 07:53 Dose: 2 tab Donepezil HCl (Aricept) 5 mg PO HS [facility] Last Admin: 12/13/17 19:46 Dose: 5 mg Enoxaparin Sodium (Lovenox) 30 mg SC 0900 [facility] Last Admin: 12/14/17 07:52 Dose: 30 mg Famotidine (Pepcid) 20 mg PO BID [facility] Last Admin: 12/14/17 07:54 Dose: 20 mg Ferrous Sulfate (Feosol) 325 mg PO DAILY [facility] Last Admin: 12/14/17 07:54 Dose: 325 mg Ceftriaxone Sodium 2 gm/ (Sodium Chloride) 100 mls @ 0 mls/hr IVPB 0900 [facility] Last Admin: 12/14/17 07:52 Dose: 100 mls Vancomycin HCl 1.25 gm/ Sodium (Chloride) 250 mls @ 166.667 mls/hr IVPB 1000 [facility] Last Admin: 12/14/17 09:46 Dose: 250 mls Miscellaneous Medication (Pharmacy To Dose) 0 each IVPB ASDIR PRN PRN Reason: Pharmacy to Dose VANCOMYCIN Multivitamins (Theragran) 1 tab PO DAILY [facility] Last Admin: 12/14/17 07:54 Dose: 1 tab Polyethylene Glycol (Miralax) 17 gm PO DAILY [facility] Last Admin: 12/14/17 07:53 Dose: 17 gm Senna/Docusate Sodium (Senokot S) 2 tab PO BIDPRN PRN PRN Reason: Constipation Senna/Docusate Sodium (Senokot S) 1 tab PO BID [facility] Last Admin: 12/14/17 07:53 Dose: 1 tab Tramadol HCl (Ultram) 50 mg PO Q6HR PRN PRN Reason: Pain
[2017-12-14] MEDS: Donepezil HCl 5 MG TAB PO SCH (21:19)
[2017-12-15] MEDS: traMADol HCl 50 MG TAB PO PRN (06:37)
[2017-12-15] MEDS: cefTRIAXone\\ROCEPHIN 2 GM in Sodium Chloride 0.9% 100 ML IVPB SCH (07:36)
[2017-12-15] MEDS: Polyethylene Glycol 3350 17 GM Packet PO SCH (07:37)
[2017-12-15] MEDS: Senokot S 8.6-50 MG TAB PO SCH ×2 (07:37→19:46)
[2017-12-15] MEDS: Enoxaparin Sodium 30 MG/0.3 ML SYRINGE SC SCH (07:37)
[2017-12-15] MEDS: Famotidine 20 MG TAB PO SCH ×2 (07:37→19:45)
[2017-12-15] MEDS: Calcium Carbonate + Vit D 1 TAB PO SCH (07:38)
[2017-12-15] MEDS: Ferrous Sulfate 325 MG TAB PO SCH (07:38)
[2017-12-15] MEDS: Multivit, Therapeutic 1 TAB PO SCH (07:38)
[2017-12-15] MEDS: Atorvastatin Calcium 20 MG TAB PO SCH (07:38)
[2017-12-15 09:23] LABS: Vancomycin, Trough 5.3 ug/mL
[2017-12-15] MEDS ORDERED: Vancomycin HCl 1.25 GM in Sodium Chloride 0.9% 250 ML 250 ML IVPB SCH (10:00)
[2017-12-15] MEDS: ALPRAZolam 0.25 MG TAB PO PRN ×2 (12:25→19:45)
[2017-12-15] MEDS: Donepezil HCl 5 MG TAB PO SCH (19:45)
[2017-12-16 05:24] LABS: Anion Gap 11 mmol/L (10-20); BUN (Urea Nitrogen) 16 mg/dL (9.8-20.1); Calc. Creatinine Clearance 85 mL/min (70-130); Calcium 8.6 mg/dL (7.8-10.44); Carbon Dioxide 24 mmol/L (23-31); Chloride 109 mmol/L (98-107); Estimated GFR-MDRD 90; Glucose 89 mg/dL (83-110); Potassium 3.4 mmol/L (3.5-5.1); Sodium 141 mmol/L (136-145)
[2017-12-16 05:51] LABS: Band 7 % (5-11); Eosinophils 10 % (0-10); Hemoglobin 11.5 g/dL (12.0-16.0); Lymphocytes 37 % (21-51); MDiff Complete? YES; Mean Corpuscular HGB CONC 31.8 g/dL (32.0-36.0); Mean Corpuscular Hemoglobin 30.9 pg (27.0-31.0); Mean Corpuscular Volume 97.2 fL (78.0-98.0); Monocytes 14 % (0-10); Neutrophil 32 % (42-75); Platelet Count 198 thou/uL (130-400); Red Blood Cell (RBC) Count 3.71 mill/uL (4.20-5.40); White Blood Cell (WBC) Count 6.7 thou/uL (4.8-10.8)
[2017-12-16] MEDS ORDERED: Potassium Chloride 20 MEQ TAB PO SCH (07:45)
[2017-12-16] MEDS: cefTRIAXone\\ROCEPHIN 2 GM in Sodium Chloride 0.9% 100 ML IVPB SCH (07:58)
[2017-12-16] MEDS: Multivit, Therapeutic 1 TAB PO SCH (07:59)
[2017-12-16] MEDS: Atorvastatin Calcium 20 MG TAB PO SCH (07:59)
[2017-12-16] MEDS: Enoxaparin Sodium 30 MG/0.3 ML SYRINGE SC SCH (07:59)
[2017-12-16] MEDS: Ferrous Sulfate 325 MG TAB PO SCH (07:59)
[2017-12-16] MEDS: Famotidine 20 MG TAB PO SCH ×2 (07:59→20:13)
[2017-12-16] MEDS: Calcium Carbonate + Vit D 1 TAB PO SCH (07:59)
[2017-12-16] MEDS: Senokot S 8.6-50 MG TAB PO SCH ×2 (08:00→20:13)
[2017-12-16] MEDS: Polyethylene Glycol 3350 17 GM Packet PO SCH (08:00)
--- NOTE | 2017-12-16 13:28 | PDOC.PN ---
- Subjective Encounter Start Date: 12/16/17 Encounter Start Time: 10:30 Subjective: pt up in bed no complains - Objective Resuscitation Status: Resuscitation Status FULL:Full Resuscitation Vital Signs & Weight: Vital Signs (12 hours) Temp Pulse Resp BP Pulse Ox 12/16/17 07:47 98.2 F 60 20 143/69 H 94 L Weight Weight 178 lb I&O: 12/15/17 12/16/17 12/17/17 06:59 06:59 06:59 Intake Total 720 960 Balance 720 960 Result Diagrams: 12/16/17 03:42 12/16/17 03:42 Additional Labs: Accuchecks 12/15/17 12/15/17 19:39 16:49 POC Glucose 98 116 H Phys Exam - Physical Examination Neck: no nodes, no JVD, supple, full ROM Respiratory: no wheezing, no rales, no rhonchi, wheezing present, clear to auscultation bilateral Cardiovascular: RRR, no significant murmur, no rub, gallop, irregular Gastrointestinal: soft, non-tender, no distention, positive bowel sounds Musculoskeletal: no edema, pulses present, edema present Dx/Plan (1) Sepsis Code(s): A41.9 - SEPSIS, UNSPECIFIED ORGANISM Status: Acute (2) Generalized weakness Code(s): R53.1 - WEAKNESS Status: Acute (3) Acute metabolic encephalopathy Code(s): G93.41 - METABOLIC ENCEPHALOPATHY Status: Acute (4) Fever Code(s): R50.9 - FEVER, UNSPECIFIED Status: Acute - Plan pt alert but still has moments of confusion -: spoke with radiology who did not think her brain cT was worse * . Review of Systems - Review of Systems Respiratory: negative: Cough, Dry, Shortness of Breath, Hemoptysis, SOB with Excertion, Pleuritic Pain, Sputum, Wheezing Cardiovascular: negative: chest pain, palpitations, orthopnea, paroxysmal nocturnal dyspnea, edema, light headedness, other Gastrointestinal: negative: Nausea, Vomiting, Abdominal Pain, Diarrhea, Constipation, Melena, Hematochezia, Other Genitourinary: negative: Dysuria, Frequency, Incontinence, Hematuria, Retention , Other - Medications/Allergies Allergies/Adverse Reactions: Allergies Allergy/AdvReac Type Severity Reaction Status Date / Time cephalexin Allergy Verified 11/17/17 16:00 Penicillins Allergy Verified 12/13/17 12:33 Sulfa (Sulfonamide Allergy Verified 12/13/17 12:33 Antibiotics) Medications: Current Medications Acetaminophen (Tylenol) 650 mg PO Q4H PRN PRN Reason: Headache/Fever/Mild Pain (1-3) Alprazolam (Xanax) 0.25 mg PO BIDPRN PRN PRN Reason: Anxiety Last Admin: 12/15/17 19:45 Dose: 0.25 mg Atorvastatin Calcium (Lipitor) 20 mg PO DAILY [facility] Last Admin: 12/16/17 07:59 Dose: 20 mg Calcium/Vitamin D (Caltrate 600 + Vit D) 2 tab PO DAILY [facility] Last Admin: 12/16/17 07:59 Dose: 2 tab Donepezil HCl (Aricept) 5 mg PO HS [facility] Last Admin: 12/15/17 19:45 Dose: 5 mg Enoxaparin Sodium (Lovenox) 30 mg SC 0900 [facility] Last Admin: 12/16/17 07:59 Dose: 30 mg Famotidine (Pepcid) 20 mg PO BID [facility] Last Admin: 12/16/17 07:59 Dose: 20 mg Ferrous Sulfate (Feosol) 325 mg PO DAILY [facility] Last Admin: 12/16/17 07:59 Dose: 325 mg Ceftriaxone Sodium 2 gm/ (Sodium Chloride) 100 mls @ 0 mls/hr IVPB 0900 [facility] Last Admin: 12/16/17 07:58 Dose: 100 mls Miscellaneous Medication (Pharmacy To Dose) 0 each IVPB ASDIR PRN PRN Reason: Pharmacy to Dose VANCOMYCIN Multivitamins (Theragran) 1 tab PO DAILY [facility] Last Admin: 12/16/17 07:59 Dose: 1 tab Polyethylene Glycol (Miralax) 17 gm PO DAILY [facility] Last Admin: 12/16/17 08:00 Dose: Not Given Senna/Docusate Sodium (Senokot S) 2 tab PO BIDPRN PRN PRN Reason: Constipation Senna/Docusate Sodium (Senokot S) 1 tab PO BID [facility] Last Admin: 12/16/17 08:00 Dose: Not Given Sodium Chloride (Flush - Normal Saline) 10 ml IVF Q12HR [facility] Last Admin: 12/16/17 08:00 Dose: 10 ml Sodium Chloride (Flush - Normal Saline) 10 ml IVF PRN PRN PRN Reason: Saline Flush Tramadol HCl (Ultram) 50 mg PO Q6HR PRN PRN Reason: Pain Last Admin: 12/15/17 06:37 Dose: 50 mg
--- NOTE | 2017-12-16 15:13 | PDOC.PN ---
- Subjective Encounter Start Date: 12/15/17 Encounter Start Time: 10:30 Subjective: pt up in bed no complains - Objective Resuscitation Status: Resuscitation Status FULL:Full Resuscitation Vital Signs & Weight: Vital Signs (12 hours) Temp Pulse Resp BP Pulse Ox 12/16/17 07:47 98.2 F 60 20 143/69 H 94 L Weight Weight 178 lb I&O: 12/15/17 12/16/17 12/17/17 06:59 06:59 06:59 Intake Total 720 960 Balance 720 960 Result Diagrams: 12/16/17 03:42 12/16/17 03:42 Additional Labs: Accuchecks 12/15/17 12/15/17 19:39 16:49 POC Glucose 98 116 H Dx/Plan (1) Sepsis Code(s): A41.9 - SEPSIS, UNSPECIFIED ORGANISM Status: Acute (2) Generalized weakness Code(s): R53.1 - WEAKNESS Status: Acute (3) Acute metabolic encephalopathy Code(s): G93.41 - METABOLIC ENCEPHALOPATHY Status: Acute (4) Fever Code(s): R50.9 - FEVER, UNSPECIFIED Status: Acute - Plan No sign of infection -: Daughter feels she needs to have a LP since her change in mental status was -: sudden. I told her that i will speak with radiology since i did not feel -: there was much change on her ct from prior. will discontinue abx * . Review of Systems - Review of Systems Respiratory: negative: Cough, Dry, Shortness of Breath, Hemoptysis, SOB with Excertion, Pleuritic Pain, Sputum, Wheezing Cardiovascular: negative: chest pain, palpitations, orthopnea, paroxysmal nocturnal dyspnea, edema, light headedness, other Gastrointestinal: negative: Nausea, Vomiting, Abdominal Pain, Diarrhea, Constipation, Melena, Hematochezia, Other Genitourinary: negative: Dysuria, Frequency, Incontinence, Hematuria, Retention , Other - Medications/Allergies Allergies/Adverse Reactions: Allergies Allergy/AdvReac Type Severity Reaction Status Date / Time cephalexin Allergy Verified 11/17/17 16:00 Penicillins Allergy Verified 12/13/17 12:33 Sulfa (Sulfonamide Allergy Verified 12/13/17 12:33 Antibiotics) Medications: Current Medications Acetaminophen (Tylenol) 650 mg PO Q4H PRN PRN Reason: Headache/Fever/Mild Pain (1-3) Alprazolam (Xanax) 0.25 mg PO BIDPRN PRN PRN Reason: Anxiety Last Admin: 12/15/17 19:45 Dose: 0.25 mg Atorvastatin Calcium (Lipitor) 20 mg PO DAILY [facility] Last Admin: 12/16/17 07:59 Dose: 20 mg Calcium/Vitamin D (Caltrate 600 + Vit D) 2 tab PO DAILY [facility] Last Admin: 12/16/17 07:59 Dose: 2 tab Donepezil HCl (Aricept) 5 mg PO HS [facility] Last Admin: 12/15/17 19:45 Dose: 5 mg Enoxaparin Sodium (Lovenox) 30 mg SC 0900 [facility] Last Admin: 12/16/17 07:59 Dose: 30 mg Famotidine (Pepcid) 20 mg PO BID [facility] Last Admin: 12/16/17 07:59 Dose: 20 mg Ferrous Sulfate (Feosol) 325 mg PO DAILY [facility] Last Admin: 12/16/17 07:59 Dose: 325 mg Ceftriaxone Sodium 2 gm/ (Sodium Chloride) 100 mls @ 0 mls/hr IVPB 0900 [facility] Last Admin: 12/16/17 07:58 Dose: 100 mls Miscellaneous Medication (Pharmacy To Dose) 0 each IVPB ASDIR PRN PRN Reason: Pharmacy to Dose VANCOMYCIN Multivitamins (Theragran) 1 tab PO DAILY [facility] Last Admin: 12/16/17 07:59 Dose: 1 tab Polyethylene Glycol (Miralax) 17 gm PO DAILY [facility] Last Admin: 12/16/17 08:00 Dose: Not Given Senna/Docusate Sodium (Senokot S) 2 tab PO BIDPRN PRN PRN Reason: Constipation Senna/Docusate Sodium (Senokot S) 1 tab PO BID [facility] Last Admin: 12/16/17 08:00 Dose: Not Given Sodium Chloride (Flush - Normal Saline) 10 ml IVF Q12HR [facility] Last Admin: 12/16/17 08:00 Dose: 10 ml Sodium Chloride (Flush - Normal Saline) 10 ml IVF PRN PRN PRN Reason: Saline Flush Tramadol HCl (Ultram) 50 mg PO Q6HR PRN PRN Reason: Pain Last Admin: 12/15/17 06:37 Dose: 50 mg
[2017-12-16] MEDS: ALPRAZolam 0.25 MG TAB PO PRN (20:13)
[2017-12-16] MEDS: Donepezil HCl 5 MG TAB PO SCH (20:13)
[2017-12-16 21:49] LABS: Vancomycin, Trough 3.4 ug/mL
[2017-12-17 06:55] VITALS: BP 150/74; TEMP 97.6
[2017-12-17] MEDS: Famotidine 20 MG TAB PO SCH (07:37)
[2017-12-17] MEDS: Atorvastatin Calcium 20 MG TAB PO SCH (07:37)
[2017-12-17] MEDS: Multivit, Therapeutic 1 TAB PO SCH (07:37)
[2017-12-17] MEDS: Ferrous Sulfate 325 MG TAB PO SCH (07:37)
[2017-12-17] MEDS: Enoxaparin Sodium 30 MG/0.3 ML SYRINGE SC SCH (07:38)
[2017-12-17] MEDS: Polyethylene Glycol 3350 17 GM Packet PO SCH (07:38)
[2017-12-17] MEDS: Calcium Carbonate + Vit D 1 TAB PO SCH (07:38)
[2017-12-17] MEDS: Senokot S 8.6-50 MG TAB PO SCH (07:39)
[2017-12-17] MEDS: traMADol HCl 50 MG TAB PO PRN (14:37)
--- NOTE | 2017-12-17 22:07 | DIS ---
DATE OF ADMISSION: 12/13/2017 DATE OF DISCHARGE: 12/17/2017 DISCHARGE DIAGNOSES: 1. Initially possible sepsis. 2. Fever. 3. Recent right hip replacement. 4. Possible urinary tract infection. 5. Acute metabolic encephalopathy. 6. Generalized weakness. HOSPITAL COURSE: Patient is a very pleasant 82-year-old female who initially about 2 or 3 weeks ago had a right total hip done. She was initially sent to rehab then was discharged home. The daughter brought her in a few days later stating that she was not acting herself and also stated that she poss ibly had a fever. Patient at that time was being treated for cellulitis of her right ankle area, whi ch was very mild when I saw her in the hospital, she was on clindamycin. Patient did have a document ed fever of 101 in the ER; however, and she was initially put on broad spectrum antibiotics with vanc omycin and ceftriaxone. Her urine was negative. Her blood cultures were negative. Chest x-ray did not show any acute abnormalities. She also had a CT abdomen and pelvis, which was essentially negati ve, just indicated some mild constipation. She was evaluated by Orthopedics for her right hip. No a cute abnormalities were noted. The dressing was intact. There was no drainage noted. Patient wood nued to improve throughout the hospital stay also thyroid level was checked, which was normal. Merrill mustafa's antibiotics were discontinued over 24 hours and she has not had any signs of any cellulitis or a ny infection or any fever. 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 Patient will be discharged to a rehab today. PHYSICAL EXAMINATION: VITAL SIGNS: Blood pressure 150/74, temperature of 97.6, 64, 16, 96% on room air. GENERAL: She is awake, alert, and oriented x3, does not appear in any distress. CARDIOVASCULAR: S1, S2 present. No murmurs, rubs, or gallops. ABDOMEN: Soft, nontender. Bowel sounds are present x2. EXTREMITIES: No edema. She did also have a CT head, which indicated some mild ventriculomegaly. Patient, according to the f josh does have a history of normal pressure hydrocephalus and did get a lumbar puncture in May. I did review the scans with the radiologist who stated that it looked about the same and recommended t o possible get Neurology. I did consult Neurology; however, no neurologist has seen this patient for over 24 hours and patient is continuing to improve. I have provided the number of Neurology as an o utpatient to the patient's daughter, who will follow up with him as an outpatient. HOME MEDICATIONS: As of the following: Patient is on potassium chloride 10 mEq p.o. daily. She is on iron 325 daily. She is on aspirin 325 daily. She is on amlodipine, benazepril 1 p.o. daily, lana min D3, atorvastatin 20 mg at bedtime, Toviaz 2 tablets in the daytime, Aricept 5 mg at bedtime, tram adol 50 mg q.6 hours p.r.n., Flonase as needed, and multivitamin as needed. Again, she will be discharged to home. She has been provided with neurologist number. She will foll ow up with Neurology and also with her PCP as an outpatient.
== END 2017-12-17 17:40 | DRG 871 ==
LOC: ERS 08:15 → T4-A 12:09
PROVIDERS: ADMIT Internal Medicine; ATTEND Internal Medicine
DX: A41.9 Sepsis, unspecified organism (principal); G93.41 Metabolic encephalopathy; G91.2 (Idiopathic) normal pressure hydrocephalus; I10 Essential (primary) hypertension; E86.0 Dehydration; F03.90 Unspecified dementia, unspecified severity, without behavioral disturbance, psychotic disturbance, mood disturbance, and anxiety; E78.5 Hyperlipidemia, unspecified; Z88.0 Allergy status to penicillin; Z95.2 Presence of prosthetic heart valve; Z96.641 Presence of right artificial hip joint; Z82.49 Family history of ischemic heart disease and other diseases of the circulatory system
CPT/HCPCS: 36415; 36416; 51701; 70450; 71045; 74177; 80048; 80053; 80202; 81003; 82553; 82728; 83540; 83550; 83605; 84443; 84484; 85025; 85652; 86140; 87040; 87086; 90471; 90670; 93005; 93306; 96365; 96366; 96367; A4353; G0009; G8978-GP-CJ; G8979-GP-CH; G8987-GO-CJ; G8988-GO-CI; J0696; J1650; J3370; J7050

== ENCOUNTER 2018-08-17 02:47 | Observation (INO) | payer MEDICARE ==
[2018-08-17 03:17] LABS: #Basophils 0.1 thou/uL (0.0-0.2); #Eosinphils 0.3 thou/uL (0.0-0.7); #Lymphocytes 1.7 thou/uL (1.20-3.40); #Monocytes 0.7 thou/uL (0.11-0.59); #Neutrophils 11.5 thou/uL (1.40-6.50); %Basophils 0.6 % (0.0-1.0); %Lymphocytes 12.1 % (21.0-51.0); %Neutrophils 80.2 % (42.0-75.0); Hemoglobin 14.5 g/dL (12.0-16.0); Mean Corpuscular HGB CONC 32.8 g/dL (32.0-36.0); Mean Corpuscular Hemoglobin 31.2 pg (27.0-31.0); Mean Platelet Volume 8.4 fL (7.4-10.4); Platelet Count 234 thou/uL (130-400); RBC Distribution Width 12.6 % (11.5-14.5); Red Blood Cell (RBC) Count 4.65 mill/uL (4.20-5.40); White Blood Cell (WBC) Count 14.4 thou/uL (4.8-10.8)
[2018-08-17 03:40] LABS: ALT (SGPT) 15 U/L (8-55); AST (SGOT) 16 U/L (5-34); Albumin 4.2 g/dL (3.4-4.8); Alkaline Phosphatase 142 U/L (40-150); Anion Gap 15 mmol/L (10-20); BUN (Urea Nitrogen) 14 mg/dL (9.8-20.1); Bilirubin, Total 0.9 mg/dL (0.2-1.2); Calc. Creatinine Clearance 0 mL/min (70-130); Calcium 9.5 mg/dL (7.8-10.44); Carbon Dioxide 22 mmol/L (23-31); Chloride 106 mmol/L (98-107); Estimated GFR-MDRD 78; Globulin 2.6 g/dL (2.4-3.5); Glucose 117 mg/dL (83-110); Potassium 3.5 mmol/L (3.5-5.1); Protein, Total 6.8 g/dL (6.0-8.3); Sodium 139 mmol/L (136-145)
[2018-08-17 04:54] LABS: Bilirubin Negative (Negative); Blood, Urine Trace (Negative); Clarity CLOUDY (Clear); Glucose, Urine (Dipstick) Negative (Negative); Leukocyte Trace (Negative); Nitrite Negative (Negative); Protein, Urine (Dipstick) Negative (Neg-Trace); Specific Gravity, Urine 1.016 (1.002-1.036); Urobilinogen 0.2 mg/dL (0.2-1.0); pH, Urine 7.5 (5.0-9.0)
[2018-08-17 04:56] LABS: Bacteria/HPF None Seen HPF (None Seen); RBC/HPF 0-3 HPF (0-3); WBC/HPF 0-3 HPF (0-3)
[2018-08-17 05:01] LABS: Hyaline Casts/LPF 0-3 HYALINE CAST LPF (0-3 Hyaline); Pathc Cast-AUWi Flag 3.53 (0-2.49)
[2018-08-17 05:02] LABS: Oval Fat Bodies/HPF None Seen HPF (None Seen); Renal Epithelial 0-3 HPF (0-3); Sperm/HPF None Seen HPF (None Seen); Transitional Epithelial NONE SEEN HPF (0-3); Trichomonas/HPF None Seen HPF (None Seen); Yeast-All Forms None Seen HPF (None Seen)
[2018-08-17] MEDS ORDERED: MEROPENEM 1 GM/50 ML 1 GM in Premix Bag 1 BAG IVPB SCH (05:30)
--- NOTE | 2018-08-17 07:45 | CT ---
PRELIMINARY REPORT/[facility]/EMERGENCY AFTER HOURS PROCEDURE: EXAM: CT Abdomen and Pelvis With Contrast EXAM DATE/TIME: 08/17/2018 3:53 AM CLINICAL HISTORY: 83 years old, female; Signs and symptoms; Prior surgery; Patient HX: Er 8. 83f presenting with acute onset of nausea and vomiting today. PT reports indigestion around lunch today but improved after drinking a coke. She reports vomiting x 4 this evening, denies diarrhea. PT reports currently being t reated for UTI. Surgical history of hysterectomy TECHNIQUE: Imaging protocol: Axial computed tomography images of the abdomen and pelvis with intravenous contras t. Coronal reformatted images were created and reviewed. COMPARISON: No relevant prior studies available. FINDINGS: Lungs: No consolidations. Heart: No consolidations. Partially visualized aortic and mitral valve replacement. ABDOMEN: Liver: No mass. Gallbladder and bile ducts: Moderate distention of the gallbladder with mild wall thickening. Small c alcified gallstone. Pancreas: No mass or ductal dilation. Spleen: No mass. Adrenals: No mass. Kidneys and ureters: No enhancing mass or hydronephrosis. Stomach and bowel: Small to moderate hiatal hernia. No bowel obstruction. Nonspecific thickening of t he colon at the splenic flexure with trace adjacent fluid. Appendix: The appendix is not visualized. PELVIS: Bladder: Normal. Reproductive: The uterus is not visualized. ABDOMEN and PELVIS: Intraperitoneal space: No free fluid or free air. Bones/joints: Right hip intramedullary ryan and interlocking screw for prior intertrochanteric fractur e. The bones are demineralized. Soft tissues: There is a left lateral lower quadrant hernia containing bowel without evidence of strangulation or obstruction. Vasculature: Moderate atherosclerosis of the aorta without aneurysm. Lymph nodes: No lymphadenopathy. Other findings: Moderate to large amount of retained stool. IMPRESSION: 1. Moderate distention of the gallbladder, small calcified gallstone and mild gallbladder wall thicke rosenda. If patient has pain referrable to the gallbladder, consider ultrasound for further evaluation. 2. Nonspecific thickening of the colon at the splenic fracture with trace adjacent fluid is nonspecif ic and could represent peristalsis, colitis or reactive to the gallbladder. 3. Moderate to large amount of retained stool. 4. Left lateral lower quadrant hernia without obstruction. 5. Small to moderate size hiatal hernia. Thank you for allowing us to participate in the care of your patient. Dictated and Authenticated by: Divine Goldsmith MD 08/17/2018 5:06 AM Central Time ([place] & [place]) FINAL REPORT CT ABDOMEN AND PELVIS WITH IV CONTRAST: DATE: 08/17/2018. TIME: Performed on emergency basis at 0355 hours. HISTORY: Abdominal pain.. COMPARISON: 12/13/2017. FINDINGS: Agree with the preliminary report by Dr. Goldsmith from [facility]. Acute cholecystitis is the fa vored diagnosis. Large amount of stool throughout the colon. Left lower quadrant anterior abdominal wall hernia. Atherosclerosis. Hiatal hernia. Transcribed Date/Time: 08/17/2018 8:49 AM
--- NOTE | 2018-08-17 07:47 | ULT ---
GALLBLADDER ULTRASOUND: CLINICAL HISTORY: Abdominal pain. FINDINGS: There is moderate distention of the gallbladder with internal echogenicity indicative of cholelithias is and gallbladder sludge. The gallbladder wall is thick measuring 6-7 mm, and the Rich's sign is reported as positive. There is trace pericholecystic fluid, as well. No focal hepatic lesion. The common duct is normal at 4 m. IMPRESSION: Findings indicate cholelithiasis and cholecystitis. Recommend surgical consultation. POS: PAULO
[2018-08-17 08:37] LABS: INR-International Normal Ratio 1.1; Prothrombin Time 14.4 SEC (12.0-14.7)
[2018-08-17] MEDS ORDERED: Iopamidol 370 76% 100 ML VIAL ONE (09:22)
[2018-08-17] MEDS ORDERED: Bupivacaine/Epinephrine 0.25% 30 ML VIAL ONE (09:42)
[2018-08-17] MEDS ORDERED: Fentanyl 100 MCG/2 ML VIAL ONE (09:44)
--- NOTE | 2018-08-17 11:15 | HP ---
HISTORY OF PRESENT ILLNESS: Ms. Arnold is an 83-year-old woman, who presented to emergency department with insidious onset epigastric, right upper quadrant abdominal pain, which started yesterday approximately after lunch. Pain was initially described as indigestion with a temporary relief and intensified approximately 2200 hours last night. The patient presented to emergency department complaining of persistent right upper quadrant, epigastric abdominal pain, described as sharp without any radiation. The pain is associated with multiple episodes of nonbilious emesis. The patient denies any fevers or chills. She denies any recent change in her bowel habits. PAST MEDICAL HISTORY: Pertinent for hyperlipidemia, essential hypertension, senile dementia of Alzheimer's type. PAST SURGICAL HISTORY: Pertinent for right knee arthroplasty, childhood tonsillectomy and adenoidectomy, right hip arthroplasty, aortic valvular replacement 2 years previously. She is also status post appendectomy. SOCIAL HISTORY: She denies any cigarette smoking, ethanol, or illicit drug abuse. She is a resident of an extended care facility. FAMILY HISTORY: Noncontributory for this patient's age. ALLERGIES: ALLERGIES TO CEPHALEXIN, PENICILLIN, AND SULFA DRUGS. PRE-HOSPITAL MEDICATIONS: Include: 1. Aspirin 325 mg p.o. daily. 2. Ferrous sulfate 325 mg p.o. daily. 3. Multiple vitamins p.o. daily. 4. Amlodipine, unsure of the dosage. REVIEW OF SYSTEMS: A 10-point review of systems is essentially unremarkable except as stated in past medical history and chief complaint. PHYSICAL EXAMINATION: GENERAL: Reveals an 83-year-old normally developed woman, who is otherwise coherent, interactive, and appears stated age. The patient is alert and oriented x3. She appears to be in no acute distress at the time of my evaluation. VITAL SIGNS: Currently, include blood pressure 161/64, pulse 77, respiratory rate is 18, temperature 98.1 degrees Fahrenheit, oxygen saturation is 97% on room air. HEENT: Reveals normocephalic and atraumatic. Pupils are equal, round, reactive to light and accommodation. Extraocular muscles are intact bilaterally. No scleral icterus is present. Oral mucosa is pink and moist. No lesions are noted. NECK: Supple. No palpable lymphadenopathy or thyromegaly present. HEART: Reveals regular rate and rhythm. No murmurs or gallops auscultated. LUNGS: Clear to auscultation bilaterally. Breathing, regular and nonlabored. ABDOMEN: Soft with moderate right upper quadrant tenderness to palpation. Liver and spleen nonpalpable below costal margin. EXTREMITIES: Reveal 2+ radial and pedal pulses bilaterally. No ankle edema is present. NEUROLOGIC: Reveals no focal deficits present. LABORATORY FINDINGS: Today include a CBC with 14,400 white blood cells, hemoglobin and hematocrit 14.5 and 44.1 respectively, and platelet count is 234,000. Metabolic profile: Sodium 139, potassium 3.5, chloride is 106, bicarb is 22, BUN 14, creatinine is 0.71, glucose 117. AST and ALT are normal at 16 and 15 respectively. Alkaline phosphatase is also normal at 142. INR is normal at 1.1. I have personally reviewed the abdominal ultrasound, which is remarkable for multiple intraluminal gallstones, pericholecystic fluid and gallbladder wall thickening. The common bile duct is normal in diameter for this patient's age at 4 mm. IMPRESSION: 1. Acute cholecystitis with cholelithiasis. 2. History of essential hypertension and hyperlipidemia. PLAN: 1. Laparoscopic cholecystectomy. 2. Above findings and plan discussed with the patient and her adult daughter at bedside. 3. I advised the patient of the risks and benefits of the proposed surgery to include, but not limited to bleeding, infection, injury to bile duct or surrounding structures. 4. The patient and her daughter have indicated understanding of information given. I have answered their questions. 5. The patient has granted consent for this admission and surgical intervention. Job ID: [id number]
[2018-08-17] MEDS ORDERED: Ondansetron PF 4 MG/2 ML Vial IVP PRN (12:02)
[2018-08-17] MEDS ORDERED: Dextrose 5% in Water 1,000 ML IV PRN (12:02)
[2018-08-17] MEDS ORDERED: hydrALAZINE 20 MG/ML VIAL SLOW IVP PRN (12:02)
[2018-08-17] MEDS ORDERED: Calcium Carbonate 500 MG ChewTAB PO PRN (12:02)
[2018-08-17] MEDS ORDERED: Promethazine HCl 25 MG/ML VIAL IM PRN ×2 (12:02→12:19)
[2018-08-17] MEDS ORDERED: Dextrose 50% Abboject 50 ML SYRINGE SLOW IVP PRN (12:02)
[2018-08-17] MEDS ORDERED: Mag-Al 1200 mg/1200 mg/30 ML UDCUP PO PRN (12:02)
[2018-08-17] MEDS ORDERED: traMADol HCl 50 MG TAB PO PRN ×2 (12:05)
[2018-08-17] MEDS ORDERED: Lidocaine 1% PF 5 ML VIAL ONE (12:10)
[2018-08-17] MEDS ORDERED: Rocuronium Bromide 10 MG/ML (10ML VIAL) ONE (12:10)
[2018-08-17] MEDS ORDERED: Dexamethasone 20 MG/5 ML VIAL ONE (12:10)
[2018-08-17] MEDS ORDERED: Succinylcholine Chloride 20 MG/ML 10 ml SYRINGE FS ONE (12:10)
[2018-08-17] MEDS ORDERED: Metoclopramide HCl 10 MG/2 ML VIAL ONE (12:10)
[2018-08-17] MEDS ORDERED: Ketorolac Tromethamine 30 MG/ML VIAL ONE (12:10)
[2018-08-17] MEDS ORDERED: PROPOFOL 200 MG/20 ML VIAL ONE (12:10)
[2018-08-17] MEDS ORDERED: Glycopyrrolate 0.2 MG/ML 5 ML SYRINGE ONE (12:10)
[2018-08-17] MEDS ORDERED: ePHEDrine 50 MG/ML VIAL ONE (12:10)
[2018-08-17] MEDS ORDERED: Ketorolac Tromethamine 30 MG/ML VIAL IVP PRN (12:19)
[2018-08-17] MEDS ORDERED: HYDROmorphone 2 MG/ML VIAL SLOW IVP PRN (12:19)
[2018-08-17] MEDS ORDERED: Meperidine HCl/PF 25 MG/ML VIAL SLOW IVP PRN (12:19)
[2018-08-17] MEDS ORDERED: Promethazine HCl 25 MG/ML VIAL SLOW IVP PRN (12:19)
[2018-08-17] MEDS: Acetaminophen 325 MG TAB PO SCH ×2 (14:30→18:56)
[2018-08-17] MEDS: Lactated Ringer's 1,000 ML IV SCH ×2 (14:31→23:51)
[2018-08-17] MEDS ORDERED: Prevnar 13-Val Conj/PF 0.5 ML SYRINGE IM ONE (14:45)
--- NOTE | 2018-08-17 17:44 | OP ---
DATE OF PROCEDURE: 08/17/2018 PREOPERATIVE DIAGNOSIS: Acute cholecystitis and cholelithiasis. OPERATION PERFORMED: Laparoscopic cholecystectomy. ANESTHESIA: General endotracheal. ESTIMATED BLOOD LOSS: 10 mL. FLUIDS GIVEN: 1000 mL crystalloids. COUNTS: Sponge and instrument counts were verified as correct x2. COMPLICATIONS: None apparent at the time of operation. INDICATIONS FOR OPERATION: An 83-year-old woman, presented with insidious onset of epigastric and right upper quadrant abdominal pain associated with multiple episodes of nonbilious emesis. Clinical and radiographic examination were consistent with acute cholecystitis with cholelithiasis for which the patient was brought to the operating room for cholecystectomy. Findings are consistent with markedly dilated gallbladder with partial encasement by omental adhesions. DESCRIPTION OF PROCEDURE: Informed consent was obtained from the patient. She was brought to the operating room and placed in the supine position. Following general anesthesia, abdomen was sterilely prepped and draped in the usual fashion. The skin below the umbilicus was infiltrated with 0.25% Marcaine with epinephrine. A small curvilinear infraumbilical incision was made using an 11 scalpel. Umbilical stalk was grasped with a Jake and elevated. Veress needle was inserted through the incision and placed in the peritoneal cavity through which the abdomen was insufflated with 3 L of CO2 gas. Intraabdominal pressure noted at 2 mmHg. Following abdominal insufflation, Veress needle was removed, and a 5 mm trocar was introduced using a Visiport under laparoscopy. Laparoscopy confirmed proper placement of the port. No injuries to underlying structures. Additional laparoscopy revealed a markedly dilated gallbladder in the usual anatomic location, partially encased by omental adhesions. Under direct laparoscopy, a 12 mm epigastric and two 5 mm right lateral subcostal ports were placed after the overlying skin were infiltrated with 0.25% Marcaine with epinephrine and an appropriate incision was made. The patient was placed in a reverse Trendelenburg position and rotated to her left. I introduced a [place] dissector to take down omental adhesions. Prestige grasper was introduced through the right lateral subcostal port grasping the fundus of the gallbladder, which was elevated cephalad. Omental adhesions were then taken down from remainder of the gallbladder with good hemostasis. A second Prestige grasper was introduced through the right medial subcostal port grasping the Carmelina pouch, which was retracted laterally. The anterior coursing cystic artery was dissected free from the surrounding structures and divided between clips. Two clips were applied proximally, one clip at the junction of the cystic artery and gallbladder. The cystic duct was dissected free from the surrounding structures and divided between clips in a similar fashion. The gallbladder itself was removed from the liver bed using cautery. Gallbladder was delivered off the abdominal cavity using an EndoCatch. Operative site was inspected for good hemostasis. There was minor oozing in the gallbladder fossa. Hemostasis was readily achieved using a 1 x 2 inch piece of fibrillar. Finding no other pathology, laparoscopy was terminated. Fascia of the epigastric port was closed using 0 Vicryl suture and Endoclosure device on the laparoscopy. The abdomen was desufflated. All ports and instruments were removed and accounted for. Skin incisions were closed using 4-0 Monocryl suture in a subcuticular fashion. Dermabond was applied over incisional closure. The patient tolerated the operation without any apparent complications and was returned to recovery room in a satisfactory condition. Job ID: [id number]
[2018-08-17] MEDS: Ketorolac Tromethamine 30 MG/ML VIAL IVP SCH ×2 (18:52→23:43)
[2018-08-17] MEDS ORDERED: Acetaminophen 500 MG TAB PO SCH (19:00)
[2018-08-17 19:18] VITALS: BMI 27.4
[2018-08-17] MEDS: Acetaminophen 500 MG TAB PO SCH (19:49)
[2018-08-17] MEDS: Famotidine 20 MG TAB PO SCH (20:59)
[2018-08-17] MEDS ORDERED: Enoxaparin Sodium 30 MG/0.3 ML SYRINGE SC SCH (21:00)
[2018-08-17] MEDS: Famotidine/PF 20 mg/2ml Vial SLOW IVP SCH (23:50)
[2018-08-18] MEDS: Acetaminophen 500 MG TAB PO SCH ×3 (00:36→13:01)
[2018-08-18 04:51] LABS: #Lymphocytes 1.4 thou/uL (1.20-3.40); #Monocytes 0.6 thou/uL (0.11-0.59); #Neutrophils 8.3 thou/uL (1.40-6.50); %Basophils 0.1 % (0.0-1.0); %Eosinophils 0.1 % (0.0-10.0); %Lymphocytes 13.8 % (21.0-51.0); %Monocytes 5.7 % (0.0-10.0); %Neutrophils 80.3 % (42.0-75.0); Mean Corpuscular HGB CONC 32.8 g/dL (32.0-36.0); Mean Corpuscular Hemoglobin 31.7 pg (27.0-31.0); Mean Corpuscular Volume 96.6 fL (78.0-98.0); Platelet Count 196 thou/uL (130-400); RBC Distribution Width 12.7 % (11.5-14.5); Red Blood Cell (RBC) Count 3.78 mill/uL (4.20-5.40); White Blood Cell (WBC) Count 10.4 thou/uL (4.8-10.8)
[2018-08-18 05:09] LABS: Phosphorus 4.3 mg/dL (2.3-4.7)
[2018-08-18 05:10] LABS: ALT (SGPT) 26 U/L (8-55); AST (SGOT) 24 U/L (5-34); Albumin 3.3 g/dL (3.4-4.8); Alkaline Phosphatase 114 U/L (40-150); Anion Gap 14 mmol/L (10-20); BUN (Urea Nitrogen) 18 mg/dL (9.8-20.1); Bilirubin, Total 0.9 mg/dL (0.2-1.2); Calc. Creatinine Clearance 66 mL/min (70-130); Calcium 8.9 mg/dL (7.8-10.44); Carbon Dioxide 19 mmol/L (23-31); Chloride 107 mmol/L (98-107); Estimated GFR-MDRD 72; Globulin 2.2 g/dL (2.4-3.5); Glucose 137 mg/dL (83-110); Potassium 3.9 mmol/L (3.5-5.1); Protein, Total 5.5 g/dL (6.0-8.3); Sodium 136 mmol/L (136-145)
[2018-08-18] MEDS: Ketorolac Tromethamine 30 MG/ML VIAL IVP SCH (06:04)
[2018-08-18] MEDS ORDERED: Senokot 8.6 MG TAB PO PRN (07:07)
[2018-08-18] MEDS: Famotidine 20 MG TAB PO SCH (08:34)
[2018-08-18] MEDS: Famotidine/PF 20 mg/2ml Vial SLOW IVP SCH (08:36)
[2018-08-18] MEDS ORDERED: Ibuprofen 600 MG TAB PO PRN (08:59)
[2018-08-18] MEDS ORDERED: Polyethylene Glycol 3350 17 GM Packet PO SCH (09:00)
[2018-08-18] MEDS: Lactated Ringer's 1,000 ML IV SCH (09:56)
--- NOTE | 2018-08-18 13:28 | PRG ---
DATE OF SERVICE: 08/18/2018 SUBJECTIVE: Ms. Arnold is an 83-year-old female, who presented with acute cholecystitis. She is currently postop day #1 status post laparoscopic cholecystectomy. She is tolerating full liquid diet. Her pain is controlled with medications. She has not had a bowel movement or passed any gas, but just finished her breakfast and plans to ambulate later this morning. OBJECTIVE: VITAL SIGNS: Blood pressure 116/63, temperature 98.3, pulse 87, respiratory rate 16, and SpO2 of 98% on room air. GENERAL: Alert and oriented x3, in no acute distress, sitting in her chair. NECK: Trachea midline. Supple. CARDIAC: Regular rate and rhythm. No murmurs. RESPIRATORY: Clear to auscultation bilaterally. No respiratory distress. ABDOMEN: Appropriate mild tenderness to palpation. Incision is clean and intact with no drainage. EXTREMITIES: Radial pulses 2+. Moves all four extremities. Grossly normal sensation. SKIN: Incisions as above. ASSESSMENT: 1. Acute cholecystitis with cholelithiasis status post laparoscopic cholecystectomy on 08/17/2018. 2. Hypertension. 3. Hyperlipidemia. PLAN: 1. The patient is postop day #1 status post laparoscopic cholecystectomy. The pain is well controlled on medication. She is tolerating full liquid diet. Encouraged ambulation as the patient has not had bowel movement or passed gas as of yet. She is on Lovenox for DVT prophylaxis. She is pending rehab at the [facility]. Currently working with PT and OT. This patient was evaluated by Dr. Tapia during morning rounds. Plan was discussed with the patient, who is in agreement. Job ID: [id number] MTDD
[2018-08-18 15:39] VITALS: BP 117/58; TEMP 98.2
--- NOTE | 2018-08-19 04:20 | DIS ---
DATE OF ADMISSION: 08/17/2018 DATE OF DISCHARGE: 08/18/2018 This is Neo Turner PA-C dictating a report for Peterson Tapia DO. ADMITTING PHYSICIAN: Peterson Tapia DO DISCHARGING PHYSICIAN: Peterson Tapia DO. ADMITTING DIAGNOSES: 1. Acute cholecystitis. 2. History of hypertension and hyperlipidemia. DISCHARGE DIAGNOSES: 1. Acute cholecystitis. 2. History of hypertension and hyperlipidemia. PROCEDURES: Laparoscopic cholecystectomy. PHYSICAL EXAMINATION: For exam, please see progress note from today, but in brief; VITAL SIGNS: Temperature is 98.2, blood pressure is 117/58, heart rate 86, breathing 16 times per minute, 97% on room air. GENERAL: An 83-year-old female, sitting up, status post cholecystectomy. No acute distress. No pain. Tolerating a diet, working with PT. No acute distress. Liver function within normal limits. HOSPITAL COURSE: Ms. Arnold is an 83-year-old female who presented with acute cholecystitis. She was admitted to the surgery [facility] on hospital day #1. On hospital day #0, she was taken for laparoscopic cholecystectomy. She had no complications. She was monitored on the surgery arnold overnight. On postop day #1, tolerated diet, working with PT, had no pain. The patient has been accepted to [facility] and has elected to go with the same. DISCHARGE MEDICATIONS: Going to be; 1. Tramadol as needed for pain. 2. Potassium 10 mEq daily. 3. Fluticasone 1 to 2 sprays each naris. 4. Toviaz. 5. Iron. 6. Aricept. 7. Vitamin D3. 8. Atorvastatin 20 mg. 9. Aspirin 325 mg. 10. Amlodipine. 11. Benazepril. 12. Acetaminophen. The patient is being discharged to inpatient rehab. Diet; home routine. Discussed with the patient, verbalized understanding the same, answered all questions. The patient was seen with Dr. Peterson Tapia. Greater than 30 minutes taken in discharge planning. Job ID: [id number]
--- NOTE | 2018-08-22 12:26 | EKG ---
Test Reason : Blood Pressure : / mmHG Vent. Rate : 078 BPM Atrial Rate : 078 BPM P-R Int : 000 ms QRS Dur : 084 ms QT Int : 414 ms P-R-T Axes : 000 006 061 degrees QTc Int : 471 ms Sinus rhythm with Premature atrial complexes Nonspecific T wave abnormality Prolonged QT Abnormal ECG Confirmed by CYNTHIA LUNA ([id number]), technical writer and editor ROSSY FRANCISCO ([id number]) on 08/22/2018 12:26:12 PM Referred By: Confirmed By:CYNTHIA LUNA
== END 2018-08-18 19:06 ==
LOC: ERS 02:47 → SURG B 14:05
PROVIDERS: ADMIT Surgery; ATTEND Surgery
PROC: 0FT44ZZ Resection of Gallbladder, Percutaneous Endoscopic Approach (ICD-10-PCS; principal; 2018-08-17)
DX: K80.00 Calculus of gallbladder with acute cholecystitis without obstruction (principal); K66.0 Peritoneal adhesions (postprocedural) (postinfection); G30.1 Alzheimer's disease with late onset; F02.80 Dementia in other diseases classified elsewhere, unspecified severity, without behavioral disturbance, psychotic disturbance, mood disturbance, and anxiety; K44.9 Diaphragmatic hernia without obstruction or gangrene; K46.9 Unspecified abdominal hernia without obstruction or gangrene; E78.5 Hyperlipidemia, unspecified; I10 Essential (primary) hypertension; Z79.82 Long term (current) use of aspirin; Z79.899 Other long term (current) drug therapy; Z88.0 Allergy status to penicillin; Z88.1 Allergy status to other antibiotic agents; Z88.2 Allergy status to sulfonamides
CPT/HCPCS: 47562; 51701; 74177; 76705; 80053 ×2; 83735; 84100; 85025 ×2; 85610; 86850; 86900; 86901; 87086; 88304; 93005; 94640 ×3; 94760; 96361; 96365; 96372; 96375; 96376 ×2; 97110; 97139; 99285; G0378 ×2; 36415; 81003; 81015; A4353; J0131; J1100; J1650; J1885; J2001; J2185; J2704; J2765; J3010; J3490; J7620; Q9967